=== PATIENT | male | born 1945 | race Caucasian/White ===

== ENCOUNTER → 2017-09-05 13:25 | Outpatient (CLI) | payer MEDICARE, SELFPAY ==
--- NOTE | 2017-09-05 13:29 | RAD_ITS ---
STUDY: X-RAY - ABDOMEN/PELVIS REASON FOR EXAM: Male, 72 years old. Left-sided flank pain TECHNIQUE: Single AP view of the abdomen / pelvis. COMPARISON: 10/01/2016 FINDINGS: Evidence of previous lower abdominal and pelvic surgery, likely from cystectomy There is a moderate amount of colonic fecal material. There is no demonstrated free abdominal air. The visualized liver, spleen and kidneys are grossly normal in size and morphology. No calcifications overlying either renal shadow, or along the expected course of either ureter, however, one could be obscured by the overlying bowel gas and stool Normal soft tissue structures. There are diffuse degenerative changes of the visualized lumbar spine. RAD/Abdomen Single View IMPRESSION: No acute findings Retained stool Degenerative bony changes Electronically Signed: Tre Bowser MD at 13:45 EDT , Service support ,
[2017-09-05 16:19] LABS: Anion Gap 9 (5-15); BUN 27 mg/dL (7-18); Chloride 112 mmol/L (98-107); Creatinine, Serum 1.69 mg/dL (0.70-1.30); EST Glomerular Filtration Rate 43 mL/min (>60); Est Glom Filt Rate - Afr Amer 52 mL/min (>60); Glucose 134 mg/dL (74-106); Potassium 3.7 mmol/L (3.5-5.1); Sodium Level 144 mmol/L (136-145)
[2017-09-06 09:52] LABS: Vitamin B12 277 pg/mL (211-911)
== END ==
PROVIDERS: Family Provider Family Medicine; PCP Family Medicine; Visit Provider Urology
DX: N20.0 Calculus of kidney (principal); Z85.51 Personal history of malignant neoplasm of bladder; Z87.442 Personal history of urinary calculi
CPT/HCPCS: 36415; 74018; 80048; 82607

== ENCOUNTER → 2020-09-08 09:29 | Outpatient (CLI) | payer MEDICARE, SELFPAY ==
--- NOTE | 2020-09-08 09:34 | RAD_ITS ---
STUDY: X-RAY - ABDOMEN/PELVIS REASON FOR EXAM: Male, 75 years old. PERSONAL HX OF URINARY CALCULI TECHNIQUE: Single AP view of the abdomen / pelvis. COMPARISON: 09/05/2017 FINDINGS: Normal visualized lung bases. There is an unremarkable bowel gas pattern. Multiple surgical clips in the pelvis. The visualized liver, spleen and kidneys are grossly normal in size and morphology. Normal soft tissue structures. Normal visualized osseous structures. RAD/Abdomen Single View IMPRESSION: Normal x-ray examination of the abdomen and pelvis. Electronically Signed: Elia Peck MD at 7:23 EDT Tel , Service support ,
== END ==
PROVIDERS: PCP Family Medicine; Referring Provider Nurse Practitioner Adult Health; Visit Provider Nurse Practitioner Adult Health
DX: Z87.442 Personal history of urinary calculi (principal); Z85.51 Personal history of malignant neoplasm of bladder
CPT/HCPCS: 74018

== ENCOUNTER → 2020-09-14 08:40 | Outpatient (CLI) | payer MEDICARE, SELFPAY ==
--- NOTE | 2020-09-14 08:46 | US_ITS ---
STUDY: RENAL ULTRASOUND - COMPLETE REASON FOR EXAM: Male, 75 years old. HX OF MALIGNANT NEOPLASM OF BLADDER TECHNIQUE: Ultrasound evaluation of the kidneys was performed with real-time and static mercado-scale imaging. COMPARISON: None. FINDINGS: RIGHT KIDNEY: Normal location of the right kidney, which is normal in size. The right kidney measures 10.3 cm. Increased echogenicity of the renal cortex consistent with chronic medical renal disease her advanced age. The renal cortex measures 1.9 cm. There is no right renal mass or cyst. There are no right renal calculi. There is no right hydronephrosis. DISTAL RIGHT URETER: There is non-visualization of the distal right ureter. There is no demonstrated right ureterovesical junction calculus. There is a visualized right ureteral jet. LEFT KIDNEY: Normal location of the left kidney, which is normal in size. The left kidney measures 10.4 cm. Increased echogenicity within renal cortex consistent with chronic medical residual disease or advanced age. The renal cortex measures 1.1 cm. 3 cm cyst in the midsection of the left kidney. There are no left renal calculi. There is no left hydronephrosis. DISTAL LEFT URETER: There is non-visualization of the distal left ureter. There is no demonstrated left ureterovesical junction calculus. There is a visualized left ureteral jet. BLADDER: The distended urinary bladder has a volume of 527 ml. The empty urinary bladder has a volume of ml. There is a normal wall thickness of the distended urinary bladder. There is no demonstrated mass within the urinary bladder. There are no demonstrated bladder calculi. US/Kidney and Bladder IMPRESSION: No hydronephrosis to suggest obstruction. Electronically Signed: Elia Peck MD at 10:05 EDT Tel , Service support ,
== END ==
PROVIDERS: PCP Family Medicine; Referring Provider Nurse Practitioner Adult Health; Visit Provider Nurse Practitioner Adult Health
DX: Z85.51 Personal history of malignant neoplasm of bladder (principal); Z87.442 Personal history of urinary calculi
CPT/HCPCS: 76770

== ENCOUNTER → 2022-10-04 | Outpatient (CLI) | payer MEDICARE, SELFPAY ==
--- NOTE | 2022-10-04 13:01 | RAD_ITS ---
STUDY: X-RAY - ABDOMEN/PELVIS REASON FOR EXAM: Male, 77 years old. Malignant neoplasm of bladder. Follow-up. TECHNIQUE: Single AP view of the abdomen / pelvis on 3 images. COMPARISON: Abdominal x-ray dated August 2020. FINDINGS: Normal visualized lung bases. There is an unremarkable bowel gas pattern. There is no demonstrated free abdominal air. The visualized liver, spleen and kidneys are grossly normal in size and morphology. Stable multiple clips projected over the lower lumbosacral spine, bilateral pelvis and symphysis pubis. Osteopenia with arthrosis of both hips, unchanged. RAD/Abdomen Single View IMPRESSION: Stable abdomen with no acute superimposed finding. Electronically Signed: Saad Stern MD at 9:38 EDT ,
== END | disposition home or self-care (01) ==
LOC: RAD 12:54
PROVIDERS: PCP Family Medicine; Referring Provider Urology; Visit Provider Urology
DX: Z85.51 Personal history of malignant neoplasm of bladder (principal); Z87.442 Personal history of urinary calculi
CPT/HCPCS: 74018

== ENCOUNTER → 2024-09-07 | Outpatient (CLI) | payer MEDICARE, SELFPAY ==
--- NOTE | 2024-09-07 12:55 | RAD_ITS ---
PROCEDURE: ABDOMEN SINGLE VIEW 09/07/2024 REASON FOR EXAM: URINARY CALCULI TECHNIQUE: ABDOMEN SINGLE VIEW COMPARISON: Prior study dated October 05, 2022. FINDINGS: Bowel gas: Mildly distended left hemicolon. Calcifications: Surgical clips are seen in the abdomen. Bones: Degenerative changes of the lumbar spine. Other: No radiopaque calculus seen overlying the kidneys or the course of the ureters. RAD/Abdomen Single View IMPRESSION: No abnormal renal or ureteral calcification seen. Reading Location: [id number]
--- OUTSIDE RECORDS SUMMARY | 2024-09-07 22:23 | XMS RPT_ITS | CCD ---
Author Organization [facility] Care Team Providers Care Can Filling And Closing Machine Tender Name Role Phone GABBYFERNFABIO Unavailable Unavailable GABBY FABIO Unavailable Unavailable PHYSICIAN, NOT RECORDED Unavailable Unavailyandel Ang MD, Fernando Wiggins Unavailable Dr. Dusty Ott MD Unavailable Michelle ZAMORA, Patricia Unavailable Dr. Otto Haley MD, V Unavailable Dr. Mikhail Voss Unavailable [phone] Job Cornejo DO [facility]available [facility] ([facility] Unavailable Physical Therapy, Diony Reyes Unavailable Kristopher HERRMANN, Dr. Jose Francisco Urrutia Unavailable [facility] DIRECTOR, Gregoria Unavailable [facility] DIRECTOR, Candy Unavailable Unavailable [facility] DIRECTOR, Connie E Unavailable Unavailable [facility] DIRECTOR, Lilliana C Unavailable Unavailable Burton HERRMANN, Otto Benjamin Unavailable Donato OROSCO, Sandhya Unavailable Unavailable Brian MICHAELSN, Livia Unavailable Unavailable Terence OMER, Elise Benjamin Unavailable Unavaila shaq Ott RN, Nguyen Unavailable [phone] Dena OMER, Staci Lee Unavailable Unavailable [facility] DIRECTOR, Char K Unavailable Unagris Pabon PA-C, Katie Nixon Unavailable [phone] Mable POUCH MAKER, Erica Unavailable Unavailable [facility] DIRECTOR, Katja L Unavailable Unavailab le [facility] DIRECTOR, Franny M Unavailable Unavailab le [facility] DIRECTOR, Aster Guerrero Unavailable Unavailab claudia [facility] DIRECTOR, Saadia Unavailable Unavailabl e Nick [facility] DIRECTOR, Sonya N Unavailable Unavaila ble [facility] DIRECTOR, Yaneli Unavailable Unavailable Unavailable Unavailable India Santos C Unavailable Unavailable Unavailable Unavailable [facility] DIRECTOR, David Unavailable Unavailable Dr. Job Cornejo DO Unavailable [facility] DIRECTOR, Shantelle Unavailable UnavailFernando [facility] Unavailable Hubert Dc Referring Unavailable Hubert Dc Attending Unavailable Medications Current Medications Medication Drug Class(es) Dates Sig (Normalized) Sig (Original) acetaminophen 300 mg / HYDROcodone bitartrate 5 mg oral tablet (1 source) Opioid Agonist Start: 11-23-2015 take 1 tablet by mouth every six hours as needed Hydrocodone-Aceta minophen (Vicodin 5-300 Mg Tablet) 1 EACH tablet Active 1 TABLET PO EVERY 6 HOURS NEEDED November 23, 2015 12:00am ascorbic acid 500 mg oral tablet (15 sources) Vitamin C Start: 11-22-2015 take 1 tablet by mouth once daily Ascorbic Acid (Vitamin C) (Vitamin C) 500 MG tablet Active 500 MG PO DAILY@799November 22, 2015 12:00am Vitamin C ; kulwinder y aspirin 81 mg delayed release oral tablet (15 sources) Platelet Aggregation Inhibitor, Nonsteroidal Anti-inflammatory Drug Start: 11-22-2015 take 81 mg by mouth once daily Aspirin Active 81 MG PO DAILY@0800 November 22, 2015 12:00am take 1 tablet by mouth once kulwinder y ASPIRIN, 81MG (Oral Tablet) ; 1 daily (81 MG) atorvastatin 20 mg oral tablet (14 sources) HMG-CoA Reductase Inhibitor Start: 08-02-2023 atorvastatin 20 mg tablet ; 1 (one) Tablet qhs for 0 days Quantity: 90 {Tablet} Refills: 3 Ordered: 21-Jul-2024 MD Fernando Ang Start: 21-Jul-2024 Comments: Mail order. Start: 10-22-2022 atorvastatin 2 0 mg tablet ; 1 (one) Tablet qhs for 0 days Quantity: 90 {Tablet} Refills: 2 Ordered: 22-Oct-2022 MD Fernando Ang Start: 22-Oct-2022 Comments: Mail order. Comment on above: Mail order. carvedilol 6.25 mg oral tablet (15 sources) alpha-Adrenergic Francine, beta-Adrenergic Francine Start: 08-02-2023 carvediloL 6.25 mg tablet ; 1 Tablet bid for 90 days Quantity: 180 {Tablet} Refills: 3 Ordered: 21-Jul-2024 MD Fernando Ang Start: 21-Jul-2024 Comments: Mail order. Start: 07-17-2022 take 1 tablet by paulina th twice daily Carvedilol 6.25 MG Oral Tablet ; 1 Tablet bid for 90 days Quantity: 180 {Tablet} Refills: 3 Ordered: 17-Jul-2022 MD Fernando Ang Start: 17-Jul-2022 Comments: Mail order. Start: 11-22-2015 take 3.125 mg by paulina th twice daily Carvedilol Active 3.125 MG PO TWICE A DAY November 22, 2015 12:00am Comment on above: Mail order. Chondroitin Sulfates / Glucosamine (14 sources) take 1 tablet by mouth once daily Glucosamine Chondroitin Adv Oral Tablet ; 1 daily Daily Multivitamin Capsule (1 source) Start: 6 take 1 capsule by mouth once daily Daily Multivitamin Capsule Active 1 OINT PO DAILY November 22, 2015 12:00am Fish Oil-Dha-Epa (1 source) Start: 6 Fish Oil-Dha-Epa Active 1 EACH PO DAILY November 22, 2015 12:00am Fish Oils (14 sources) Fish Oil ; daily Yatkeour-Uciffs-Akt C-Mn-Hospers (1 source) Start: 6 Yyydquob-Ljgohk-Cea C-Mn-Hospers Active 1 EACH PO DAILY November 22, 2015 12:00am losartan potassium 50 mg oral tablet (15 sources) Angiotensin 2 Receptor Rfancine Start: 4 losartan 50 mg tablet ; 1 Tablet daily for 90 days Quantity: 90 {Tablet} Refills: 3 Ordered: 21-Jul-2024 MD Fernando Ang Start: 21-Jul-2024 Comments: Mail order. Start: 11-22-2015 take 1 tablet by paulina th once daily Losartan Potassium 50 MG Oral Tablet ; 1 Tablet daily for 90 days Quantity: 90 {Tablet} Refills: 3 Ordered: 17-Jul-2022 MD Fernando Ang Start: 17-Jul-2022 Comments: Mail order. Comment on above: Mail order. lutein 20 mg oral capsule (15 sources) Start: 11-22-2015 take 20 mg by mouth once daily Lutein Active 20 MG PO DAILY November 22, 2015 12:00am Lutein ; daily Multivitamin Adult Oral Tablet (14 sources) take 1 tablet by mouth once daily Multivitamin Adult Oral Tablet ; 1 daily Red Rice Yeast (1 source) Start: 11-22-2015 take 1200 mg by mouth once daily Red Rice Yeast Active 1200 MG PO DAILY November 22, 2015 12:00am turmeric root extract (4 sources) turmeric root ex tract vitamin e 180 mg oral capsule (15 sources) Start: 11-22-2015 take 400 [IU] by mouth once daily Vitamin E Active 400 UNIT PO DAILY November 22, 2015 12:00am Vitamin E ; kulwinder y Completed/Discontinued Medications Medication Drug Class(es) Dates Sig (Normalized) Sig (Original) amLODIPine 2.5 mg oral tablet (14 sources) Dihydropyridine Calcium Channel Francine take 1 tablet by mouth once daily AMLODIPINE BESYLATE, 2.5MG (Oral Tablet) ; 1 daily (2.5 MG) Status: Inactive amoxicillin 500 mg oral tablet (14 sources) Penicillin-class Antibacterial Start: 11-23-2011 End: 12-03-2011 take 1 tablet by mouth three times daily AMOXICILLIN, 500MG (Oral Tablet) ; 1 Tablet TID for 10 days Quantity: 30 {Tablet} Refills: 0 Ordered: 23-Nov-2011 SULLY Pabon Start: 23-Nov-2011 End: 03-Dec-2011 Status: Inactive amoxicillin 875 mg / clavulanate 125 mg oral tablet (20 sources) Penicillin-class Antibacterial Start: 09-19-2018 End: 09-29-2018 take 1 tablet by mouth twice daily Amoxicillin-Pot Clavulanate 875-125 MG Oral Tablet ; 1 (one) Tablet bid for 10 days Quantity: 20 {Tablet} Refills: 0 Ordered: 19-Sep-2018 MD Fernando Ang Start: 19-Sep-2018 End: 29-Sep-2018 Status: Inactive Start: 07-24-2011 End: 07-31-2011 take 1 tablet by mouth twice daily AUGMENTIN, 875-125MG (Oral Tablet) ; 1 (one) Tablet two times daily for 7 days Quantity: 14 {Tablet} Refills: 0 Ordered: 24-Jul-2011 CARO Carvalho Start: 24-Jul-2011 End: 31-Jul-2011 Status: Inactive cephalexin 500 mg oral capsule (14 sources) Cephalosporin Antibacterial Start: 01-23-2011 End: 01-31-2011 take 1 capsule by mouth three times daily CEPHALEXIN, 500MG (Oral Capsule) ; 1 Capsule three times daily for 10 days Quantity: 30 {Capsule} Refills: 1 Ordered: 31-Jan-2011 MD Otto Manrique Start: 23-Jan-2011 End: 31-Jan-2011 Status: Inactive ciprofloxacin 500 mg oral tablet (14 sources) Quinolone Antimicrobial Start: 01-31-2011 End: 02-10-2011 take 1 tablet by mouth twice daily CIPROFLOXACIN HCL, 500MG (Oral Tablet) ; 1 Tablet two times daily for 10 days Quantity: 20 {Tablet} Refills: 0 Ordered: 31-Jan-2011 MD Otto Manrique Start: 31-Jan-2011 End: 10-Feb-2011 Status: Inactive Comments: Comment on above: fluticasone propionate 0.05 mg/actuat metered dose nasal spray (14 sources) Corticosteroid Start: 11-23-2011 End: 11-11-2013 take 1 spray(s) nasal route twice daily FLONASE, 50MCG/ACT (Nasal Suspension) ; 1 spray(s) in each nostril BID for 0 days Quantity: 1 {bottle(s)} Refills: 0 Ordered: 11-Nov-2013 CARO Garnica Aster Guerrero Start: 23-Nov-2011 End: 11-Nov-2013 Status: Inactive levoFLOXacin 500 mg oral tablet (14 sources) Quinolone Antimicrobial Start: 04-27-2016 End: 05-07-2016 take 1 tablet by mouth once daily Levaquin 500 MG Oral Tablet ; 1 Tab Daily for 10 days Quantity: 10 {Tablet} Refills: 0 Ordered: 11-Jun-2016 MD Fernando Ang Start: 27-Apr-2016 End: 07-May-2016 Status: Inactive omeprazole 20 mg delayed release oral tablet (14 sources) Proton Pump Inhibitor take 1 tablet by mouth once daily OMEPRAZOLE, 20MG (Oral Tablet Delayed Release) ; 1 daily (20 MG) Status: Inactive predniSONE 20 mg oral tablet (14 sources) Start: 11-25-2015 End: 04-27-2016 take 3 tablets by mouth once daily, then take 2 tablets by mouth once daily, then take 1 tablet by mouth once daily, then take 0.5 tablet by mouth once daily PredniSONE 20 MG Oral Tablet ; Tablet for 0 days Quantity: 20 {Tablet} Refills: 0 Ordered: 27-Apr-2016 CARO Singh Connie James Start: 25-Nov-2015 End: 27-Apr-2016 Status: Inactive Comments: Take 3tabs qd for 3 days thenTake 2tabs qd for 3 days thenTake 1tab qd for 3 days thenTake 1/2tab qd for 4 days. Comment on above: Take 3tabs qd for 3 days thenTake 2tabs qd for 3 days thenTake 1tab qd for 3 days thenTake 1/2tab qd for 4 days. red yeast rice (14 sources) Red Yeast Rice ; daily Status: Inactive Red Yeast Rice ; daily silver sulfADIAZINE 10 mg/ml topical cream (14 sources) Sulfonamide Antibacterial Start: 08-20-2018 End: 06-28-2020 Silvadene 1 % External Cream ; 1 application(s) daily for 0 days Quantity: 60 {Gram} Refills: 0 Ordered: 28-Jun-2020 CARO Garnica Aster Guerrero Start: 20-Aug-2018 End: 28-Jun-2020 Status: Inactive Problems Active Problems Problem Classification Problem Date Documented Da te Episodic/Chronic Calculus of urinary tract (1 source) Personal history of urinary calculi; Translations: [Personal history of urinary calculi] Onset: Episodic Cancer of bladder (20 sources) Malignant tumor of urinary bladder; Translations: [Malignant neoplasm of bladder, unspecified] 06-28-2020 Chronic Cancer of bladder (8 sources) H/O: malignant neoplasm; Translations: [Personal history of malignant neoplasm of bladder] 07-21-2024 Episodic Cardiac dysrhythmias (14 sources) Ventricular arrhythmia; Translations: [Ventricular premature depolarization] 07-20-2015 Chronic Chronic kidney disease (20 sources) Chronic kidney disease stage 3; Translations: [Chronic kidney disease, Stage III (moderate)] 07-16-2022 Chronic Chronic ulcer of skin (20 sources) Ulcer of lower limb, unspecified 01-31-2011 Chronic Conditions associated with dizziness or vertigo (20 sources) Vertigo; Translations: [Dizziness and giddiness] 07-17-2022 Episodic Disorders of lipid metabolism (20 sources) Hyperlipidemia; Translations: [Hyperlipidemia, unspecified] 07-16-2023 Chronic Esophageal disorders (20 sources) Gastroesophageal reflux disease; Translations: [Gastro-esophageal reflux disease without esophagitis] 07-16-2022 Chronic Essential hypertension (14 sources) Unspecified essential hypertension 07-08-2015 Chronic Immunizations and screening for infectious disease (20 sources) Need for prophylactic vaccination and inoculation against influenza 11-11-2013 Episodic Malaise and fatigue (20 sources) Fatigue; Translations: [Other fatigue] 06-21-2021 Episodic Nonspecific chest pain (20 sources) Chest pain; Translations: [Chest pain, unspecified] 06-21-2021 Episodic Other aftercare (20 sources) Drug indicated; Translations: [Other snf (current) drug therapy] 06-21-2021 Episodic Other aftercare (20 sources) Long-term current use of drug therapy; Translations: [Other snf (current) drug therapy] 05-21-2024 Episodic Other diseases of kidney and ureters (20 sources) Renal impairment; Translations: [Disorder of kidney and ureter, unspecified] 08-27-2018 Episodic Other ear and sense organ disorders (20 sources) Impacted cerumen; Translations: [Impacted cerumen, unspecified ear] 07-16-2022 Episodic Other gastrointestinal disorders (20 sources) Constipation; Translations: [Constipation, unspecified] 07-16-2022 Episodic Other injuries and conditions due to external causes (20 sources) Injury of ankle; Translations: [Unspecified injury of unspecified ankle, initial encounter] 06-21-2021 Episodic Other non-traumatic joint disorders (18 sources) Hip pain; Translations: [Pain in right hip] 07-02-2024 Episodic Other screening for suspected conditions (not mental disorders or infectious disease) (20 sources) Patient encounter status; Translations: [Encounter for screening for diabetes mellitus] 07-16-2023 Episodic Other skin disorders (14 sources) Infection of sebaceous cyst; Translations: [Sebaceous cyst] 09-19-2018 Episodic Other skin disorders (20 sources) Sebaceous cyst of skin; Translations: [Sebaceous cyst] 08-22-2010 Episodic Other upper respiratory disease (14 sources) Nasal congestion; Translations: [Nasal congestion] 11-23-2011 Episodic Other upper respiratory infections (20 sources) Sinusitis; Translations: [Chronic sinusitis, unspecified] 04-27-2016 Chronic Danna-; endo-; and myocarditis; cardiomyopathy (except that caused by tuberculosis or sexually transmitted disease) (20 sources) Cardiomyopathy; Translations: [Cardiomyopathy, unspecified] 07-16-2022 Chronic Peripheral and visceral atherosclerosis (20 sources) Atherosclerosis of aorta; Translations: [Atherosclerosis of aorta] 07-17-2022 Chronic Residual codes; unclassified (20 sources) Obstructive sleep apnea (adult)(pediatric) 06-21-2021 Chronic Residual codes; unclassified (20 sources) Obstructive sleep apnea syndrome; Translations: [Obstructive sleep apnea (adult) (pediatric)] 07-16-2022 Chronic Residual codes; unclassified (20 sources) History of radical cystectomy; Translations: [Acquired absence of other genital organ(s)] 07-16-2022 Episodic Skin and subcutaneous tissue infections (14 sources) Cellulitis; Translations: [Cellulitis, unspecified] 01-18-2011 Episodic Spondylosis; intervertebral disc disorders; other back problems (14 sources) Sciatica; Translations: [Sciatica, unspecified side] 11-28-2015 Episodic Unclassified (14 sources) [facility] Well Adult - In general the patient feels well with no complaints, has decreased energy level and is sleeping well. The patient has a balanced diet and takes supplemental vitamins. The patient does not exercise and sleeps 7 hours per night. The patient denies having trouble with bathing, dressing/grooming, toileting, preparing meals and ambulating. The patient denies having trouble with grocery shopping, driving, use of telephone, housework, laundry, preparing/taking medications and finances. The patient has a Healthcare Power of Contaminated Land Consultant and a Living Will. Note for [facility] Well Adult: reviewed by [facility] 07-17-2022 Unclassified (14 sources) [facility] Well Adult - In general the patient feels well with minor complaints (left ear feels like swimmers ear.). The patient has a balanced diet and takes supplemental vitamins. The patient exercises 3 - 4 times per week and sleeps 6 (6-7) hours per night. The patient denies having trouble with bathing, dressing/grooming, toileting, preparing meals and ambulating. The patient denies having trouble with grocery shopping, driving, use of telephone, housework, laundry, preparing/taking medications and finances. The patient has a Healthcare Power of Contaminated Land Consultant and a Living Will. 06-21-2021 Unclassified (14 sources) Follow Up for Multiple Chronic Conditions - The patient is here for follow-up of chronic kidney disease and GERD. The patient always takes the prescribed medications. No side effects noted (does not need refills). The patient engages in regular exercise program 3-5 times per week (walks). The patient's out of office blood pressure checks occur occasionally and dietary compliance is fairly good usually adhering to recommendations. The patient states that there is no recent angina or dyspnea, weight has increased (up 4 pounds) and headaches are rarely noted. Note for Multiple chronic conditions follow-up: reviewed by [facility] 06-28-2020 Unclassified (14 sources) Follow up for multiple chronic conditions - The patient is here for follow-up of GERD and other condition(s) (Cardiomyopathy). The patient always takes the prescribed medications. No side effects noted. The patient engages in regular exercise program 3-5 times per week (tries to get 10,000 steps daily). The patient's out of office blood pressure checks occur rarely (has not been checking recently) and dietary compliance is fairly good usually adhering to recommendations. The patient states that there is no recent angina or dyspnea and they do not have headaches. Note for Multiple chronic conditions follow-up: Labs printed to review today. reviewed by [facility] 07-27-2019 Unclassified (12 sources) Follow Up for Multiple Chronic Conditions - The patient is here for follow-up of GERD, hyperlipidemia and hypertension. The patient always takes the prescribed medications. No side effects noted (does not need refills). The patient engages in regular exercise program 3-5 times per week (walks). The patient's out of office blood pressure checks occur occasionally and dietary compliance is fairly good usually adhering to recommendations. The patient states that there is no recent angina or dyspnea, weight has increased (up 5 pounds) and headaches are rarely noted. Note for Multiple chronic conditions follow-up: Skin lesions right ankle are improving. reviewed by [facility] 08-27-2018 Unclassified (12 sources) [ADDITIONAL REASON] Transition into care - The patient is transitioning into care from another physician (cardiology) and a summary of care was reviewed. 08-27-2018 Unclassified (14 sources) Well Adult, male - The patient feels well with no complaints, has good energy level and is sleeping well. The patient has a balanced diet and takes supplemental vitamins. The patient exercises 3 - 4 times per week (Walks and bikes 5 to 6 days a week.). The patient sleeps 6 hours per night. Note for Well Adult, male: Sushil is very active, exercises, has no problems w ADLs, denies any sx of depression or anxiety 11-11-2013 Unclassified (12 sources) [facility] Well Adult - In general the patient feels well with minor complaints (Weakness in hands-Arthritis.Discus s Shingles shot.No falls since last year.Hearing loss in left ear.Wants refills for a year.). The patient has poor nutrition (not enough fruits and vegetables). The patient exercises 3 - 4 times per week and sleeps 7 hours per night. The patient denies having trouble with bathing, dressing/grooming, toileting, preparing meals and ambulating. The patient denies having trouble with grocery shopping, driving, use of telephone, housework, laundry, preparing/taking medications and finances. 08-02-2023 Unclassified (2 sources) Transition into care - The patient is transitioning into care from another physician (cardiology) and a summary of care was reviewed. 08-27-2018 Unclassified (2 sources) [ADDITIONAL REASON] Follow Up for Multiple Chronic Conditions - The patient is here for follow-up of GERD, hyperlipidemia and hypertension. The patient always takes the prescribed medications. No side effects noted (does not need refills). The patient engages in regular exercise program 3-5 times per week (walks). The patient's out of office blood pressure checks occur occasionally and dietary compliance is fairly good usually adhering to recommendations. The patient states that there is no recent angina or dyspnea, weight has increased (up 5 pounds) and headaches are rarely noted. Note for Multiple chronic conditions follow-up: Skin lesions right ankle are improving. reviewed by [facility] 08-27-2018 Unclassified (1 source) [facility] Well Adult 07-21-2024 Unclassified (4 sources) [facility] Well Adult - In general the patient feels well with no complaints, has decreased energy level and is sleeping well. The patient has a balanced diet. The patient exercises none (Patient is currently in PT) and sleeps 7 hours per night. The patient denies having trouble with bathing, dressing/grooming, toileting, preparing meals and ambulating. The patient denies having trouble with grocery shopping, driving, use of telephone, housework, laundry, preparing/taking medications and finances. The patient has a Healthcare Power of Contaminated Land Consultant and a Living Will. Note for [facility] Well Adult: Patient forgot his atorvastatin in [place] so he has been out for 3 weeks 07-21-2024 Past or Other Problems Problem Classification Problem Date Documented Da te Episodic/Chronic Unclassified (14 sources) Constipation - Note for Constipation: Was last seen in office 10-18-21 with constipation. Advised to increase fluids, exercise and take Miralax. Is concerned about possibly having hemorrhoids. reviewed by B 11-06-2021 Unclassified (14 sources) Constipation - The onset of the constipation has been acute and has been occurring in a persistent pattern for 1 month. The course has been constant. The amount of stool per bowel movement is small. The frequency of bowel movements has been 1 per week. The symptoms are relieved by laxatives. Note for Constipation: He had a strangulated inguinal hernia in Mar , had hernia repaired , no bowel resection. 10-18-2021 Unclassified (14 sources) Plugged ears - Complains of plugged ears for several weeks. Has been using ear drops. Has decreased ears. Left side is worse. reviewed by B 07-11-2021 Unclassified (14 sources) consult for apap - pt needs visit for [facility] for apap . Recently has been changed from CPAP to APAP. He is currently in [place] and not available for in person visit so today was a PHONE ENCOUNTER. 12-16-2020 Unclassified (14 sources) Skin lesion - Note for Skin lesion: Patient states that he had fatty tumor removed about 10 years ago or so. Has a lump in the same area that has gradually increased in size. 10 days ago, the area became reddened and very tender. Is not open. No drainage. No fever or chills. reviewed by B 09-19-2018 Unclassified (14 sources) Ankle pain - The onset of the ankle pain has been acute and has been occurring in a persistent pattern for 2 days. The course has been gradually improving. The pain is characterized as a moderate dull aching. The pain is in the right ankle. The pain is aggravated by physical activity. Note for Ankle pain: Fell yesterday afternoon. Has been using crutches. Continues with pain and swelling. He was running in rain and leaped over a puddle. 08-13-2018 Unclassified (14 sources) Cold SYmptoms - Pt here today because last Saturday he felt like he had a tickle in his throat and by evening he just was not feeling well. No fever. No headache. No facial pain or pressure. Occasional cough is which mainly dry. He started started some Amoxicillin last Saturday night that he had on hand tid because he felt it was sinus infection but is not feeling any better. No specific symptoms at this time . Will get achy and tired at times. A little nauseous but no vomiting. No diarrhea. No energy. No SOB and not no wheezing. PO 99%. Voice little hoarse and thinks he may have some drainage down throat. reviewed by [facility] 04-27-2016 Unclassified (13 sources) Possible Sciatica - Pt here today because 1 week ago he started to experience some pain right buttock that will radiate down to end of thigh. Says it feels like a deep Bruise. No numbness or tingling to legs or feet. Now lower back pain. Pain is aggravated by sitting. Relief is obtained by standing. He just started some Aleve this morning. Used Ibuprofen at first. Pt is suppossed to leave for [place] on Saturday.Pt had some Kidney stones crushed by Dr. Dc up in [place] this past - 11/23/15.Last saw Dr. Crouch 10/13/15. reviewed by [facility] 11-28-2015 Unclassified (13 sources) [ADDITIONAL REASON] Transition into care - The patient is transitioning into care from a hospital and a summary of care was reviewed . 11-28-2015 Unclassified (14 sources) Chest pain - The onset of the pain has been gradual and has been occurring for 3 weeks. The pain is described as a mild to moderate dull ache. The pain does not radiate. There are no precipitating factors. The symptoms are aggravated by stress. The symptoms are relieved by nothing (Has tried Rolaids and Omeprazole but has not had any relief.). Note for Chest pain: Pain/Achiness was episodic but now past several days it has been more constant. Pain is right between breasts. No other associated symptoms. Pt saw Ev on July 31 and he felt it was not heart related. Pt had hearth cath week prior to seeing Dr. Carreno and was told that was normal. He felt it was related to Acid Reflux and was put on Omeprazole till seen by PCP. 2015 Unclassified (11 sources) Follow up laboratory test results - Lab results returned on : (07-06-15) include other (cmp/lipid). 07-08-2015 Unclassified (11 sources) [ADDITIONAL REASON] Multiple complaints - Note for Multiple complaints: Had occasional chest pain this winter. Had increased chest pain while on a cruise in May. Had increased stress. Saw a doctor in [place] and started Amlodipine 2.5mg. No cardiac testing was done. 07-08-2015 Unclassified (14 sources) Routine visit - Pt is here for routine check up and to go over labs prior to going to [place] for the Winter. Had labs done and ready to review. On no prescription medications but takes Red Rice Yeast 2 caps daily and Fish oil for cholesterol, glucosamine/chondroitin for his knees, Vitamin c, 81 mg aspirin, Vitamin. Follows up at [facility] for Prostate Cancer. Feels is doing pretty well. Would like flu shot today. UTD with zostavax. No record of Pneumovax or Tetanus. reviewed by B 11-17-2012 Unclassified (14 sources) Cold Symptoms - Symptoms include sneezing, nasal congestion and runny nose (clear drainage), but do not include ear pain, dry cough, fever or headache. The onset was sudden hour(s) ago (started last night). The symptoms occur constantly. The patient describes this as moderate in severity and worsening. Current treatment includes allergy medications (took zyrtec last night). The patient has not been exposed to an individual with similar symptoms. Medical history includes seasonal allergies, recurrent sinusitis and tonsillectomy, but patient denies history of recurrent strep pharyngitis, asthma or recurrent ear infections. Note for Upper respiratory infection: Says he had something similar in July. He is leaving Saturday for [place] and then later in the month is going on a cruise. 11-23-2011 Unclassified (14 sources) Cold Symptoms - Symptoms include sneezing, hoarseness, productive cough, wheezing, fever, chills and general malaise. The onset was gradual 10 day(s) ago. The symptoms occur constantly. The patient describes this as moderate in severity and worsening. Current treatment includes acetaminophen. Risk factors do not include smoking. 07-24-2011 Unclassified (14 sources) fu leg ulcer - Patient was seen here on for right leg ulcer. It it improving.Pt has noted more swelling in foot. He states that he has been up more. He is also concerned about MRSA. 01-23-2011 Unclassified (14 sources) Skin Ulcer/Open Sore - Symptoms include an open sore, pain and swelling. Symptoms are located on the right ankle (calf). Onset was gradual 6 week(s) ago. Onset followed minor trauma. The patient describes this as moderate in severity. Past treatment has included oral antibiotics. Note for Skin Ulcer/Open Sore: 2 scripts of cephalexin 01-18-2011 Unclassified (14 sources) Cyst - Is here for removal of cyst on left shoulder. 08-22-2010 Unclassified (14 sources) Well adult male - The patient feels well with no complaints, has good energy level and is sleeping well. Date of most recent cholesterol screening : (08-02-10). Date of most recent glucose screening : (08-02-10). Patient has not had a Zostavax vaccine. Patient has not had a Pneumovax vaccine. Date of most recent influenza vaccine : (11-20). Last Tetanus booster: unknown/unsure and more than 10 year(s) ago. The patient has a balanced diet and takes no supplemental vitamins & iron. Patient exercises 3 - 4 times per week (walks). Patient sleeps 6 hours per night. Note for Well adult male: Would like to have lump on left shoulder checked. Pt saw ONC in June with no evidence of bladder CA recurrence. 08-09-2010 Unclassified (3 sources) Multiple complaints - Note for Multiple complaints: Had occasional chest pain this winter. Had increased chest pain while on a cruise in May. Had increased stress. Saw a doctor in [place] and started Amlodipine 2.5mg. No cardiac testing was done. 07-08-2015 Unclassified (3 sources) [ADDITIONAL REASON] Follow up laboratory test results - Lab results returned on : (07-06-15) include other (cmp/lipid). 07-08-2015 Unclassified (1 source) Transition into care - The patient is transitioning into care from a hospital and a summary of care was reviewed . 11-28-2015 Unclassified (1 source) [ADDITIONAL REASON] Possible Sciatica - Pt here today because 1 week ago he started to experience some pain right buttock that will radiate down to end of thigh. Says it feels like a deep Bruise. No numbness or tingling to legs or feet. Now lower back pain. Pain is aggravated by sitting. Relief is obtained by standing. He just started some Aleve this morning. Used Ibuprofen at first. Pt is suppossed to leave for [place] on Saturday.Pt had some Kidney stones crushed by Dr. Dc up in [place] this past - 11/23/15.Last saw Dr. Crouch 10/13/15. reviewed by [facility] 11-28-2015 Results Test Name Value Interpretation Reference Range Facility COMPREHENSIVE METABOLIC PANE [facility] 07-16-2024 Albumin [Mass/Vol] 4.4 g/dL Normal 3.6-5.1 [facility] Comment on above: Performed By: #### 1 0231, 5307, 7600 #### [facility] [place] [address] Head Turning Machine Operator: Ronnie Sheppard MD Albumin/Globulin [Mass ratio] 2.1 {ratio} Normal 1.0-2.5 [facility] Comment on above: Performed By: #### 1 0231, 5363, 7600 #### [facility] [place] [address] Head Turning Machine Operator: Ronnie Sheppard MD ALP [Catalytic activity/Vol] 61 U/L Normal 35-144 [facility] Comment on above: Performed By: #### 1 0231, 5363, 7600 #### [facility] [place] [address] Head Turning Machine Operator: Ronnie Sheppard MD ALT [Catalytic activity/Vol] 10 U/L Normal 9-46 [facility] Comment on above: Performed By: #### 1 0231, 5363, 7600 #### [facility] of [address], [address] [place] [address] Head Turning Machine Operator: Ronnie Sheppard MD AST [Catalytic activity/Vol] 16 U/L Normal 10-35 [facility] Comment on above: Performed By: #### 1 0231, 5363, 7600 #### [facility] of [address], [address] [place] [address] Head Turning Machine Operator: Ronnie Sheppard MD Bilirubin [Mass/Vol] 0.7 mg/dL Normal 0.2-1.2 [facility] Comment on above: Performed By: #### 1 0231, 5363, 7600 #### [facility] of [address], [address] [place] [address] Head Turning Machine Operator: Ronnie Sheppard MD Calcium [Mass/Vol] 9.5 mg/dL Normal 8.6-10.3 [facility] Comment on above: Performed By: #### 1 023, 5363, 7600 #### [facility] of [place] [address] Head Turning Machine Operator: Ronnie Sheppard MD Chloride [Moles/Vol] 107 mmol/L Normal 98-110 [facility] Comment on above: Performed By: #### 1 0231, 5363, 7600 #### [facility] of [place] [address] Head Turning Machine Operator: Ronnie Sheppard MD CO2 [Moles/Vol] 24 mmol/L Normal 20-32 [facility] Comment on above: Performed By: #### 1 0231, 5363, 7600 #### [facility] of [place] [address] Head Turning Machine Operator: Ronnie Sheppard MD Creatinine [Mass/Vol] 1.41 mg/dL High 0.70-1.28 [facility] Comment on above: Performed By: #### 1 0231, 5363, 7600 #### [facility] of [place] [address] Head Turning Machine Operator: Ronnie Sheppard MD GFR/1.73 sq M.predicted among non-blacks MDRD (S/P/Bld) [Vol rate/Area] 52 mL/min/{1.73_m2} Low > OR = 60 [facility] Comment on above: Performed By: #### 1 0231, 5363, 7600 #### [facility] of [address], [address] [place] [address] Head Turning Machine Operator: Ronnie Sheppard MD Globulin (S) [Mass/Vol] 2.1 g/dL Normal 1.9-3.7 [facility] Comment on above: Performed By: #### 1 0231, 5363, 7600 #### [facility] of [place] [address] Head Turning Machine Operator: Ronnie Sheppard MD Glucose [Mass/Vol] 96 mg/dL Normal 65-99 [facility] Comment on above: Result Comment: Fasting reference interval Performed By: #### 1 0231, 5363, 7600 #### [facility] of [place] [address] Head Turning Machine Operator: Ronnie Sheppard MD Potassium [Moles/Vol] 4.1 mmol/L Normal 3.5-5.3 [facility] Comment on above: Performed By: #### 1 0231, 5363, 7600 #### [facility] of [place] [address] Head Turning Machine Operator: Ronnie Sheppard MD Protein [Mass/Vol] 6.5 g/dL Normal 6.1-8.1 [facility] Comment on above: Performed By: #### 1 0231, 5363, 7600 #### [facility] of [place] [address] Head Turning Machine Operator: Ronnie Sheppard MD Sodium [Moles/Vol] 140 mmol/L Normal 135-146 [facility] Comment on above: Performed By: #### 1 0231, 5363, 7600 #### [facility] [place] [address] Head Turning Machine Operator: Ronnie Sheppard MD Urea nitrogen [Mass/Vol] 22 mg/dL Normal 7-25 [facility] Comment on above: Performed By: #### 1 0231, 5363, 7600 #### [facility] [address], [address] [place] [address] Head Turning Machine Operator: Ronnei Sheppard MD Urea nitrogen/Creatinine [Mass ratio] 16 mg/mg Normal 6-22 [facility] Comment on above: Performed By: #### 1 0231, 5363, 7600 #### [facility] of [address], [address] [place] [address] Head Turning Machine Operator: Ronnie Sheppard MD LIPID PANEL, [facility] 0 Cholesterol [Mass/Vol] 251 mg/dL High <200 [facility] Comment on above: Performed By: #### 1 0231, 5363, 7600 #### [facility] [place] [address] Head Turning Machine Operator: Ronnie Sheppard MD Cholesterol in HDL [Mass/Vol] 51 mg/dL Normal > OR = 40 [facility] Comment on above: Performed By: #### 1 0231, 5363, 7600 #### [facility] [place] [address] Head Turning Machine Operator: Ronnie Sheppard MD Cholesterol in LDL [Mass/Vol] 166 mg/dL High [facility] Comment on above: Result Comment: Refe rence range: <100 Desirable range <100 mg/dL for primary prevention; <70 mg/dL for patients with CHD or diabetic patients with > or = 2 CHD risk factors. LDL-C is now calculated using the Rodriguez calculation, which is a validated novel method providing better accuracy than the Friedewald equation in the estimation of LDL-C. Han FAM et al. BRAD. 2013;310(19): 9920-5341 (http://education.[employer]/faq/QAY955) Performed By: #### 1 0231, 5363, 7600 #### [facility] [address], [address] [place] [address] Head Turning Machine Operator: Ronnie Sheppard MD Cholesterol.total/Ch olesterol in HDL [Mass ratio] 4.9 {ratio} Normal <5.0 [facility] Comment on above: Performed By: #### 1 230, 5363, 7600 #### [facility] [address], [address] [place] [address] Head Turning Machine Operator: Ronnie Sheppard MD NON HDL CHOLESTEROL 200 mg/dL (calc) High <130 [facility] Comment on above: Result Comment: For patients with diabetes plus 1 major ASCVD risk factor, treating to a non-HDL-C goal of <100 mg/dL (LDL-C of <70 mg/dL) is considered a therapeutic option. Performed By: #### 1 023, 5363, 7600 #### [facility] [place] [address] Head Turning Machine Operator: Ronnie Sheppard MD Triglyceride [Mass/Vol] 184 mg/dL High <150 [facility] Comment on above: Performed By: #### 1 230, 5363, 7600 #### [facility] [place] [address] Head Turning Machine Operator: Ronnie Sheppard MD PSA, TOTALon 07-16-2024 PSA, TOTAL <0.04 Normal < OR = 4.00 [facility] Comment on above: Result Comment: The total PSA value from this assay system is standardized against the WHO standard. The test result will be approximately 20% lower when compared to the equimolar-standardized total PSA ([place]). Comparison of serial PSA results should be interpreted with this fact in mind. This test was performed using the Siemens chemiluminescent method. Values obtained from different assay methods cannot be used interchangeably. PSA levels, regardless of value, should not be interpreted as absolute evidence of the presence or absence of disease. Performed By: #### 1 023, 5363, 7600 #### [facility] [address], [address] [place] [address] Head Turning Machine Operator: Ronnie Sheppard MD Laboratory - Chemistry and C hemistry - challengeon 07-15-2024 Albumin [Mass/Vol] 4.4 g/dL Normal 3.6 - 5.1 g/dL [facility], [facility]. Albumin/Globulin [Mass ratio] 2.1 {ratio} Normal 1.0 - 2.5 [facility].; [place] [employer] [facility], [facility]. ALP [Catalytic activity/Vol] 61 U/L Normal 35 - 144 U/L [facility].; [facility], [facility]. ALT [Catalytic activity/Vol] 10 U/L Normal 9 - 46 U/L [facility].; [place] [employer] [facility], [facility]. AST [Catalytic activity/Vol] 16 U/L Normal 10 - 35 U/L [facility].; [place] [employer] [facility], [facility]. Bilirubin [Mass/Vol] 0.7 mg/dL Normal 0.2 - 1 .2 mg/dL [facility].; [place] [employer] [facility], [facility]. Calcium [Mass/Vol] 9.5 mg/dL Normal 8.6 - 10. 3 mg/dL [facility].; [place] [employer] [facility], [facility]. Chloride [Moles/Vol] 107 mmol/L Normal 98 - 11 0 mmol/L [facility].; [place] [employer] [place]. Cholesterol [Mass/Vol] 251 mg/dL Abnormal [facility].; [place] [employer] [facility], [facility]. Cholesterol in HDL [Mass/Vol] 51 mg/dL Normal [facility].; [place] [employer], [facility]. Cholesterol in LDL [Mass/Vol] 166 mg/dL Abnormal [facility].; [place] [employer]. CO2 [Moles/Vol] 24 mmol/L Normal 20 - 32 mmol/L [facility].; [place] [employer] [facility]. Creatinine [Mass/Vol] 1.41 mg/dL Abnormal 0.70 - 1.28 mg/dL [facility].; [place] [employer], [facility]. GFR/1.73 sq M.predicted among non-blacks MDRD (S/P/Bld) [Vol rate/Area] 52 mL/min/{1.73_m2} Abnormal [facility].; [place] [employer] Glucose [Mass/Vol] 96 mg/dL Normal 65 - 99 mg/dL [facility].; [facility] Potassium [Moles/Vol] 4.1 mmol/L Normal 3.5 - 5.3 mmol/L [facility].; [facility], [facility] Protein [Mass/Vol] 6.5 g/dL Normal 6.1 - 8.1 g/dL [facility].; [facility], [facility] Sodium [Moles/Vol] 140 mmol/L Normal 135 - 146 mmol/L [facility].; [facility], [facility] Triglyceride [Mass/Vol] 184 mg/dL Abnormal [facility]; [facility], [facility] Urea nitrogen [Mass/Vol] 22 mg/dL Normal 7 - 25 mg/dL [facility]; [facility], [facility] Urea nitrogen/Creatinine [Mass ratio] 16 mg/mg Normal 6 - 22 [facility]; [facility], [facility] No Panel Informationon 07-15 CHOL/HDLC RATIO 4.9 Normal [facility]; [facility], [facility] GLOBULIN 2.1 Normal 1.9 - 3.7 [facility]; [facility], [facility] NON HDL CHOLESTEROL 200 Abnormal [facility]; [facility], [facility] PSA, TOTAL <0.04 Normal [facility]; [facility], [facility] COMPREHENSIVE METABOLIC PANE [facility] 07-31-2023 Albumin [Mass/Vol] 4.3 g/dL Normal 3.6-5.1 [facility] Comment on above: Performed By: #### 1 1815, 0093 #### [facility] [address] [id number] Head Turning Machine Operator: Ronnie Sheppard MD Albumin/Globulin [Mass ratio] 2.0 {ratio} Normal 1.0-2.5 [facility] Comment on above: Performed By: #### 1 444, 4411 #### [facility] [address], [address] [place] [id number] Head Turning Machine Operator: Ronnie Sheppard MD ALP [Catalytic activity/Vol] 60 U/L Normal 35-144 [facility] Comment on above: Performed By: #### 1 0231, 7600 #### [facility] of [place] [address] Head Turning Machine Operator: Ronnie Sheppard MD ALT [Catalytic activity/Vol] 11 U/L Normal 9-46 [facility] Comment on above: Performed By: #### 1 0231, 7600 #### [facility] of [place] [address] Head Turning Machine Operator: Ronnie Sheppard MD AST [Catalytic activity/Vol] 16 U/L Normal 10-35 [facility] Comment on above: Performed By: #### 1 0231, 7600 #### [facility] of [place] [address] Head Turning Machine Operator: Ronnie Sheppard MD Bilirubin [Mass/Vol] 0.8 mg/dL Normal 0.2-1.2 [facility] Comment on above: Performed By: #### 1 0231, 7600 #### [facility] of [place] [address] Head Turning Machine Operator: Ronnie Sheppard MD Calcium [Mass/Vol] 9.2 mg/dL Normal 8.6-10.3 [facility] Comment on above: Performed By: #### 1 0231, 7600 #### [facility] of [place] [address] Head Turning Machine Operator: Ronnie Sheppard MD Chloride [Moles/Vol] 109 mmol/L Normal 98-110 [facility] Comment on above: Performed By: #### 1 0231, 7600 #### [facility] of [place] [address] Head Turning Machine Operator: Ronnie Sheppard MD CO2 [Moles/Vol] 24 mmol/L Normal 20-32 [facility] Comment on above: Performed By: #### 1 0231, 7600 #### [facility] of [place] [address] Head Turning Machine Operator: Ronnie Sheppard MD Creatinine [Mass/Vol] 1.47 mg/dL High 0.70-1.28 [facility] Comment on above: Performed By: #### 1 023, 7600 #### [facility] [place] [address] Head Turning Machine Operator: Ronnie Sheppard MD GFR/1.73 sq M.predicted among non-blacks MDRD (S/P/Bld) [Vol rate/Area] 49 mL/min/{1.73_m2} Low > OR = 60 [facility] Comment on above: Performed By: #### 1 023, 7600 #### [facility] [place] [address] Head Turning Machine Operator: Ronnie Sheppard MD Globulin (S) [Mass/Vol] 2.2 g/dL Normal 1.9-3.7 [facility] Comment on above: Performed By: #### 1 230, 7600 #### [facility] of [place] [address] Head Turning Machine Operator: Ronnie Sheppard MD Glucose [Mass/Vol] 95 mg/dL Normal 65-99 [facility] Comment on above: Result Comment: Fasting reference interval Performed By: #### 1 023, 7600 #### [facility] [place] [address] Head Turning Machine Operator: Ronnie Sheppard MD Potassium [Moles/Vol] 3.8 mmol/L Normal 3.5-5.3 [facility] Comment on above: Performed By: #### 1 023, 7600 #### [facility] of [place] [address] Head Turning Machine Operator: Ronnie Sheppard MD Protein [Mass/Vol] 6.5 g/dL Normal 6.1-8.1 [facility] Comment on above: Performed By: #### 1 023, 7600 #### [facility] [place] [address] Head Turning Machine Operator: Ronnie Sheppard MD Sodium [Moles/Vol] 141 mmol/L Normal 135-146 [facility] Comment on above: Performed By: #### 1 0231, 7600 #### [facility] of [place] [address] Head Turning Machine Operator: Ronnie Sheppard MD Urea nitrogen [Mass/Vol] 22 mg/dL Normal 7-25 [facility] Comment on above: Performed By: #### 1 0231, 7600 #### [facility] of [place] [address] Head Turning Machine Operator: Ronnie Sheppard MD Urea nitrogen/Creatinine [Mass ratio] 15 mg/mg Normal 6-22 [facility] Comment on above: Performed By: #### 1 0231, 7600 #### [facility] [place] [address] Head Turning Machine Operator: Ronnie Sheppard MD LIPID PANEL, [facility] 07-12 Cholesterol [Mass/Vol] 148 mg/dL Normal <200 [facility] Comment on above: Performed By: #### 1 0231, 7600 #### [facility] [place] [address] Head Turning Machine Operator: Ronnie Sheppard MD Cholesterol in HDL [Mass/Vol] 55 mg/dL Normal > OR = 40 [facility] Comment on above: Performed By: #### 1 0231, 7600 #### [facility] [place] [address] Head Turning Machine Operator: Ronnie Sheppard MD Cholesterol in LDL [Mass/Vol] 74 mg/dL Normal [facility] Comment on above: Result Comment: Refe rence range: <100 Desirable range <100 mg/dL for primary prevention; <70 mg/dL for patients with CHD or diabetic patients with > or = 2 CHD risk factors. LDL-C is now calculated using the Rodriguez calculation, which is a validated novel method providing better accuracy than the Friedewald equation in the estimation of LDL-C. Han SS et al. BRAD. 2013;310(19): 3911-8149 (http://education.[employer]ling/faq/WDT542) Performed By: #### 1 230, 0 #### [facility] [address], [address] [place] [address] Head Turning Machine Operator: Ronnie Sheppard MD Cholesterol.total/Ch olesterol in HDL [Mass ratio] 2.7 {ratio} Normal <5.0 [facility] Comment on above: Performed By: #### 1 023, 0 #### [facility] [address], [address] [place] [address] Head Turning Machine Operator: Ronnie Sheppard MD NON HDL CHOLESTEROL 93 mg/dL (calc) Normal <130 [facility] Comment on above: Result Comment: For patients with diabetes plus 1 major ASCVD risk factor, treating to a non-HDL-C goal of <100 mg/dL (LDL-C of <70 mg/dL) is considered a therapeutic option. Performed By: #### 1 230, 0 #### [facility] [address], [address] [place] [address] Head Turning Machine Operator: Ronnie Sheppadr MD Triglyceride [Mass/Vol] 103 mg/dL Normal <150 [facility] Comment on above: Performed By: #### 1 023, 0 #### [facility] [place] [address] Head Turning Machine Operator: Ronnie Sheppard MD Laboratory - Chemistry and C hemistry - challengeon 07-30-2023 Albumin [Mass/Vol] 4.3 g/dL Normal 3.6 - 5.1 g/dL [facility], [facility].; [facility] Albumin/Globulin [Mass ratio] 2.0 {ratio} Normal 1.0 - 2.5 [facility], [facility].; [facility], [facility]. ALP [Catalytic activity/Vol] 60 U/L Normal 35 - 144 U/L [facility], [facility].; [facility] ALT [Catalytic activity/Vol] 11 U/L Normal 9 - 46 U/L [facility], [facility].; [place] [employer] [facility], [facility]. AST [Catalytic activity/Vol] 16 U/L Normal 10 - 35 U/L [facility], [facility].; [place] [employer] [facility], [facility]. Bilirubin [Mass/Vol] 0.8 mg/dL Normal 0.2 - 1 .2 mg/dL [facility], [facility].; [facility] Calcium [Mass/Vol] 9.2 mg/dL Normal 8.6 - 10. 3 mg/dL [facility], [facility].; [facility], [facility]. Chloride [Moles/Vol] 109 mmol/L Normal 98 - 11 0 mmol/L [facility], [facility].; [place] [employer] Cholesterol [Mass/Vol] 148 mg/dL Normal [facility], [facility].; [facility], [facility]. Cholesterol in HDL [Mass/Vol] 55 mg/dL Normal [facility], [facility].; [place] [employer] [facility] Cholesterol in LDL [Mass/Vol] 74 mg/dL Normal [facility], [facility].; [place] [employer] [facility], [place] CO2 [Moles/Vol] 24 mmol/L Normal 20 - 32 mmol/L [facility], [facility].; [place] [employer] Creatinine [Mass/Vol] 1.47 mg/dL Abnormal 0.70 - 1.28 mg/dL [facility], [facility].; [place] [employer] [facility], [facility]. GFR/1.73 sq M.predicted among non-blacks MDRD (S/P/Bld) [Vol rate/Area] 49 mL/min/{1.73_m2} Abnormal [facility], [facility].; [facility] Glucose [Mass/Vol] 95 mg/dL Normal 65 - 99 mg/dL [facility], [facility].; [place] [employer] Potassium [Moles/Vol] 3.8 mmol/L Normal 3.5 - 5.3 mmol/L [facility], [facility].; [place] [employer] Protein [Mass/Vol] 6.5 g/dL Normal 6.1 - 8.1 g/dL [facility], [facility].; [place] [employer] Sodium [Moles/Vol] 141 mmol/L Normal 135 - 146 mmol/L [facility], [facility].; [place] [employer] Triglyceride [Mass/Vol] 103 mg/dL Normal [facility] Urea nitrogen [Mass/Vol] 22 mg/dL Normal 7 - 25 mg/dL [facility].; [facility], [facility]. Urea nitrogen/Creatinine [Mass ratio] 15 mg/mg Normal 6 - 22 [facility].; [place] [employer] [facility], [facility]. No Panel Informationon 07-29 CHOL/HDLC RATIO 2.7 Normal [facility]; [facility] GLOBULIN 2.2 Normal 1.9 - 3.7 [facility]; [facility] NON HDL CHOLESTEROL 93 Normal [facility]; [facility], [facility] Laboratory - Chemistry and C hemistry - challengeon 07-11-2022 Albumin [Mass/Vol] 4.1 g/dL Normal 3.6 - 5.1 g/dL [facility].; [facility], [facility]. Albumin/Globulin [Mass ratio] 2.2 {ratio} Normal 1.0 - 2.5 [facility]; [facility]. ALP [Catalytic activity/Vol] 56 U/L Normal 35 - 144 U/L [facility].; [facility], [facility]. ALT [Catalytic activity/Vol] 12 U/L Normal 9 - 46 U/L [facility].; [place] [employer] [facility], [facility]. AST [Catalytic activity/Vol] 15 U/L Normal 10 - 35 U/L [facility].; [facility]. Bilirubin [Mass/Vol] 0.7 mg/dL Normal 0.2 - 1 .2 mg/dL [facility].; [facility], [facility]. Calcium [Mass/Vol] 9.2 mg/dL Normal 8.6 - 10. 3 mg/dL [facility].; [place] [employer] [facility], [facility]. Chloride [Moles/Vol] 109 mmol/L Normal 98 - 11 0 mmol/L [facility], [facility].; [place] [employer] [facility], [facility]. Cholesterol [Mass/Vol] 134 mg/dL Normal [facility].; [facility], [facility]. Cholesterol in HDL [Mass/Vol] 48 mg/dL Normal [facility].; [facility], [facility]. Cholesterol in LDL [Mass/Vol] 69 mg/dL Normal [facility], [facility].; [facility], [facility]. CO2 [Moles/Vol] 24 mmol/L Normal 20 - 32 mmol/L [facility].; [facility], [facility]. Creatinine [Mass/Vol] 1.49 mg/dL Abnormal 0.70 - 1.28 mg/dL [facility].; [facility], [facility]. GFR/1.73 sq M.predicted among non-blacks MDRD (S/P/Bld) [Vol rate/Area] 49 mL/min/{1.73_m2} Abnormal [facility], [facility]. Glucose [Mass/Vol] 87 mg/dL Normal 65 - 99 mg/dL [facility], [facility].; [facility], [facility]. Potassium [Moles/Vol] 3.8 mmol/L Normal 3.5 - 5.3 mmol/L [facility].; [facility], [facility]. Protein [Mass/Vol] 6.0 g/dL Abnormal 6.1 - 8.1 g/dL [facility], [facility].; [facility], [facility]. Sodium [Moles/Vol] 141 mmol/L Normal 135 - 146 mmol/L [facility], [facility].; [facility], [facility]. Triglyceride [Mass/Vol] 91 mg/dL Normal [facility], [facility].; [facility], [facility]. Urea nitrogen [Mass/Vol] 23 mg/dL Normal 7 - 25 mg/dL [facility], [facility].; [facility], [facility]. Urea nitrogen/Creatinine [Mass ratio] 15 mg/mg Normal 6 - 22 [facility], [facility].; [place] [employer] [facility], [facility]. No Panel Informationon 07-11 CHOL/HDLC RATIO 2.8 Normal [facility].; [facility], [facility]. GLOBULIN 1.9 Normal 1.9 - 3.7 [facility], [facility].; [place] [employer] [facility], [facility] NON HDL CHOLESTEROL 86 Normal [facility], [facility].; [facility], [facility]. Laboratory - Chemistry and C hemistry - challengeon 06-23-2020 Albumin [Mass/Vol] 4.5 g/dL Normal 3.6 - 5.1 g/dL [facility]; [facility], [facility] Albumin/Globulin [Mass ratio] 2.0 {ratio} Normal 1.0 - 2.5 [facility]; [place] [employer] [facility], [facility] ALP [Catalytic activity/Vol] 56 U/L Normal 35 - 144 U/L [facility].; [facility], [facility] ALT [Catalytic activity/Vol] 11 U/L Normal 9 - 46 U/L [facility].; [facility], [facility] AST [Catalytic activity/Vol] 16 U/L Normal 10 - 35 U/L [facility].; [place] [employer] [facility], [facility] Bilirubin [Mass/Vol] 0.9 mg/dL Normal 0.2 - 1 .2 mg/dL [facility].; [place] [employer], [place] Calcium [Mass/Vol] 9.6 mg/dL Normal 8.6 - 10. 3 mg/dL [facility].; [place] [employer], [place] Chloride [Moles/Vol] 106 mmol/L Normal 98 - 11 0 mmol/L [facility].; [place] [employer] Cholesterol [Mass/Vol] 243 mg/dL Abnormal [facility].; [place] [employer], [place]. Cholesterol in HDL [Mass/Vol] 51 mg/dL Normal [facility].; [place] [employer], [place]. Cholesterol in LDL [Mass/Vol] 161 mg/dL Abnormal [facility].; [place] [employer], [place] CO2 [Moles/Vol] 29 mmol/L Normal 20 - 32 mmol/L [facility].; [place] [employer], [place]. Creatinine [Mass/Vol] 1.45 mg/dL Abnormal 0.70 - 1.18 mg/dL [facility].; [place] [employer], [facility]. GFR/1.73 sq M.predicted among blacks MDRD (S/P/Bld) [Vol rate/Area] 55 mL/min/{1.73_m2} Abnormal [facility].; [place] [employer], [facility]. Glucose [Mass/Vol] 95 mg/dL Normal 65 - 99 mg/dL [facility]; [facility] Potassium [Moles/Vol] 3.7 mmol/L Normal 3.5 - 5.3 mmol/L [facility]; [facility] Protein [Mass/Vol] 6.8 g/dL Normal 6.1 - 8.1 g/dL [facility]; [facility] Sodium [Moles/Vol] 141 mmol/L Normal 135 - 146 mmol/L [facility]; [facility] Triglyceride [Mass/Vol] 161 mg/dL Abnormal [facility]; [facility] Urea nitrogen [Mass/Vol] 21 mg/dL Normal 7 - 25 mg/dL [facility]; [facility], [facility] Urea nitrogen/Creatinine [Mass ratio] 14 mg/mg Normal 6 - 22 [facility]; [place] [employer] [facility] No Panel Informationon 06-23 CHOL/HDLC RATIO 4.8 Normal [facility]; [facility] eGFR NON-AFR. NEW ZEALANDER 48 Abnormal [facility]; [facility] GLOBULIN 2.3 Normal 1.9 - 3.7 [facility]; [place] [employer] [facility], [facility] NON HDL CHOLESTEROL 192 Abnormal [facility]; [place] [employer] [facility] Laboratory - Chemistry and C hemistry - challengeon 07-22-2019 Albumin [Mass/Vol] 4.3 g/dL Normal 3.6 - 5.1 g/dL [facility]; [facility] Albumin/Globulin [Mass ratio] 2.2 {ratio} Normal 1.0 - 2.5 [facility]; [place] [employer] [facility] ALP [Catalytic activity/Vol] 68 U/L Normal 35 - 144 U/L [facility]; [place] [employer] [facility], [facility]. ALT [Catalytic activity/Vol] 13 U/L Normal 9 - 46 U/L [facility]; [place] [employer] [facility]. AST [Catalytic activity/Vol] 16 U/L Normal 10 - 35 U/L [facility], [facility].; [facility], [facility]. Bilirubin [Mass/Vol] 0.5 mg/dL Normal 0.2 - 1 .2 mg/dL [facility], [facility].; [facility], [facility] Calcium [Mass/Vol] 9.3 mg/dL Normal 8.6 - 10. 3 mg/dL [facility], [facility].; [facility], [facility]. Chloride [Moles/Vol] 110 mmol/L Normal 98 - 11 0 mmol/L [facility], [facility].; [facility], [facility] Cholesterol [Mass/Vol] 221 mg/dL Abnormal [facility], [facility].; [facility], [facility]. Cholesterol in HDL [Mass/Vol] 47 mg/dL Normal [facility], [facility].; [facility], [facility]. Cholesterol in LDL [Mass/Vol] 146 mg/dL Abnormal [facility], [facility].; [facility], [facility]. CO2 [Moles/Vol] 22 mmol/L Normal 20 - 32 mmol/L [facility], [facility].; [place] [employer] [facility], [facility] Creatinine [Mass/Vol] 1.61 mg/dL Abnormal 0.70 - 1.18 mg/dL [facility], [facility].; [facility], [facility]. GFR/1.73 sq M.predicted among blacks MDRD (S/P/Bld) [Vol rate/Area] 49 mL/min/{1.73_m2} Abnormal [facility], [facility].; [facility], [facility] Glucose [Mass/Vol] 89 mg/dL Normal 65 - 99 mg/dL [facility], [facility].; [place] [employer] Potassium [Moles/Vol] 4.0 mmol/L Normal 3.5 - 5.3 mmol/L [facility], [facility].; [facility], [facility] Protein [Mass/Vol] 6.3 g/dL Normal 6.1 - 8.1 g/dL [facility], [facility].; [place] [employer] Sodium [Moles/Vol] 141 mmol/L Normal 135 - 146 mmol/L [facility], [facility].; [place] [employer] Triglyceride [Mass/Vol] 150 mg/dL Abnormal [facility].; [employer]. Urea nitrogen [Mass/Vol] 26 mg/dL Abnormal 7 - 25 mg/dL [facility].; [employer]. Urea nitrogen/Creatinine [Mass ratio] 16 mg/mg Normal 6 - 22 [facility].; [employer]. No Panel Informationon 07-21 CHOL/HDLC RATIO 4.7 Normal [facility]; [place] [employer] [facility]. eGFR NON-AFR. [place]ANDER 42 Abnormal [facility].; [employer]. GLOBULIN 2.0 Normal 1.9 - 3.7 [facility]; [employer] NON HDL CHOLESTEROL 174 Abnormal [facility].; [employer] [facility]. ANKLE COMPLETE RTon 08-14-19 19 ANKLE COMPLETE RT [place] [address] Patient: SUSHIL TREVINO Phone#: : 1945 Age: 73 Gender: M Pt. Type: Out Account: [id number] Location: 052 Ordering: FERNANDO ANG Exam Date: 08/13/2018/10:05 Family Phys: Charge Code: [id number] Physician: [place] Order #: [id number] DLP Dose#: PROCEDURE: X-RAY ANKLE COMPLETE RT MIN 3 VIEWS COMPARISON: None. INDICATIONS: Ankle injury FINDINGS: BONES: No acute fracture or dislocation. There is a small calcaneal spur measuring 0.5 cm. There is an os trigonum measuring 1.0 x 0.6 cm. SOFT TISSUES: There is soft tissue swelling overlying the malleoli and anterior ankle. Soft tissue swelling most pronounced overlying the medial malleolus. EFFUSION: None visible. OTHER: Negative. CONCLUSION: 1. Soft tissue swelling without acute osseous abnormality. Dictated by: Ernestine Busby MD on 08/13/2018 at 10:44 Approved by: Ernestine Busby MD on 08/13/2018 at 10:44 Normal [facility] Laboratory - Chemistry and C hemistry - challengeon 08-13-2018 Albumin [Mass/Vol] 4.3 g/dL Normal 3.6 - 5.1 g/dL [facility].; [employer]. Albumin/Globulin [Mass ratio] 2.0 {ratio} Normal 1.0 - 2.5 [facility].; [employer]. ALP [Catalytic activity/Vol] 73 U/L Normal 40 - 115 U/L [facility].; [place] [employer]. ALT [Catalytic activity/Vol] 11 U/L Normal 9 - 46 U/L [facility].; [employer]. AST [Catalytic activity/Vol] 16 U/L Normal 10 - 35 U/L [place] [employer] [facility].; [employer]. Bilirubin [Mass/Vol] 0.8 mg/dL Normal 0.2 - 1 .2 mg/dL [place] [employer] [facility].; [employer]. Calcium [Mass/Vol] 9.2 mg/dL Normal 8.6 - 10. 3 mg/dL [place] [employer] [facility].; [employer]. Chloride [Moles/Vol] 109 mmol/L Normal 98 - 11 0 mmol/L [place] [employer] [facility].; [employer]. Cholesterol [Mass/Vol] 206 mg/dL Abnormal [place] [employer] [facility].; [employer], [place]. Cholesterol in HDL [Mass/Vol] 46 mg/dL Normal [place] [employer] [facility].; [employer]. Cholesterol in LDL [Mass/Vol] 137 mg/dL Abnormal 0 - 100 mg/dL [place] [employer] [facility].; [employer], [place]. Cholesterol non HDL [Mass/Vol] 161 mg/dL Abnormal [employer] [facility].; [employer], [place]. Cholesterol.total/Ch olesterol in HDL [Mass ratio] 4.5 {ratio} Normal [place] [employer] [facility].; [employer]. CO2 [Moles/Vol] 20 mmol/L Normal 20 - 32 mmol/L [place] [employer] [facility].; [employer], [place]. Creatinine [Mass/Vol] 1.71 mg/dL Abnormal 0.70 - 1.18 mg/dL [facility].; [place] [employer]. GFR/1.73 sq M.predicted among blacks MDRD (S/P/Bld) [Vol rate/Area] 46 {ML/MIN/1.73M2} Abnormal [facility].; [place] [employer] [facility], Inc[facility] GFR/1.73 sq M.predicted MDRD (S/P/Bld) [Vol rate/Area] 39 {ML/MIN/1.73M2} Abnormal [place] [employer] [facility].; [place] [employer], [place]. Globulin (S) [Mass/Vol] 2.1 g/dL Normal 1.9 - 3.7 g/dL [facility].; [place] [employer], [place]. Glucose [Mass/Vol] 106 mg/dL Abnormal 65 - 99 mg/dL [place] [employer] [facility].; [employer], [place]. Potassium [Moles/Vol] 4.1 mmol/L Normal 3.5 - 5.3 mmol/L [facility].; [employer], [place]. Protein [Mass/Vol] 6.4 g/dL Normal 6.1 - 8.1 g/dL [place] [employer] [facility].; [employer], [place]. Sodium [Moles/Vol] 139 mmol/L Normal 135 - 146 mmol/L [place] [employer] [facility].; [employer], [place]. Triglyceride [Mass/Vol] 113 mg/dL Normal [place] [employer], [facility].; [employer], [place]. Urea nitrogen [Mass/Vol] 29 mg/dL Abnormal 7 - 25 mg/dL [place] [employer] [facility].; [employer], [place]. Urea nitrogen/Creatinine [Mass ratio] 17.2 mg/mg Normal 6 - 22 [place] [employer].; [employer]. Laboratory - Hematology and Cell countson 08-13-2018 Basophils (Bld) [#/Vol] 70 {Cells}/uL Normal 0 - 200 {Cells}/uL [place] [employer].; [employer] Basophils/100 WBC (Bld) 0.9 % Normal 0 - 1 % [place] [employer].; [employer], [place]. Eosinophils (Bld) [#/Vol] 230 {Cells}/uL Normal 15 - 500 {Cells}/uL [facility].; [place] [employer] [facility]. Eosinophils/100 WBC (Bld) 3.0 % Normal 0 - 4 % [facility].; [place] [employer] [facility], [facility]. Erythrocyte distribution width (RBC) [Ratio] 12.6 % Normal 11.0 - 15.0 % [facility], [facility].; [place] [employer], [facility]. Hematocrit (Bld) [Volume fraction] 39.9 % Normal 38.5 - 50.0 % [facility], [facility].; [place] [employer] [facility], [facility]. Hemoglobin (Bld) [Mass/Vol] 13.6 g/dL Normal 13.2 - 17.1 g/dL [facility].; [place] [employer] [facility], [facility]. Lymphocytes (Bld) [#/Vol] 1200 {Cells}/uL Normal 850 - 3900 {Cells}/uL [facility], [facility].; [place] [employer], [facility]. Lymphocytes/100 WBC (Bld) 15.8 % Normal 12 - 47 % [place] [employer] [facility].; [place] [employer], [facility]. MCH (RBC) [Entitic mass] 31.5 pg Normal 27.0 - 33.0 PG [place] [employer] [facility].; [place] [employer], [facility]. MCHC (RBC) [Mass/Vol] 34.1 g/dL Normal 32.0 - 36.0 g/dL [facility], [facility].; [place] [employer] MCV (RBC) [Entitic vol] 92.4 fL Normal 80.0 - 100.0 fL [place] [employer] [facility].; [place] [employer], [facility]. Monocytes (Bld) [#/Vol] 760 {Cells}/uL Normal 200 - 950 {Cells}/uL [place] [employer] [facility].; [place] [employer] Monocytes/100 WBC (Bld) 10.0 % Normal 4 - 12 % [place] [employer].; [place] [employer] Neutrophils (Bld) [#/Vol] 5340 {Cells}/uL Normal 1500 - 7800 {Cells}/uL [place] [employer], [facility].; [employer] Neutrophils/100 WBC (Bld) 70.3 % Normal 40 - 75 % [place] [employer] [facility].; [employer], [place]. Platelet mean volume (Bld) [Entitic vol] 10.9 fL Normal 7.5 - 12.5 fL [facility] [employer].; [employer]. Platelets (Bld) [#/Vol] 211 10*3/uL Normal 140 - 400 10*3/uL [facility] [employer].; [employer] RBC (Bld) [#/Vol] 4.32 10*6/uL Normal 4.20 - 5.8 0 10*6/uL [employer].; [employer] WBC (Bld) [#/Vol] 7.6 10*3/uL Normal 3.8 - 10.8 10*3/uL [employer].; [employer]. NM CARDIAC STRESS (SPECT) W/ TREADMILLon 10-23-2017 NM CARDIAC STRESS (SPECT) W/TREADMILL [place] [address] Patient: SUSHIL TREVINO Phone#: : 1945 Age: 72 Gender: M Pt. Type: Out Account: [id number] Location: [facility] Ordering: BRANDON CROUCH Exam Date: 10/23/2017/6:01 Family Phys: FERNANDO ANG Charge Code: [id number] Physician: [place] Order #: [id number] DLP Dose#: PROCEDURE: CARDIAC STRESS SPECT WITH TREADMILL EXERCISE HISTORY: Chest discomfort with exertion INDICATIONS: Chest pain TECHNIQUE: Resting and stress SPECT images acquired in the horizontal long, vertical long and short axis views. Protocol: Luis Duration: 07:30 minutes Peak Heart Rate: 142 bpm, which is 94% of maximum predicted heart rate. Workload: 9.30 METs REST DOSE: 11.2 mCi Sestamibi. STRESS DOSE: 32.8 mCi Sestamibi. INTERPRETATION: Resting Images: There is a decrease in the uptake of activity in the inferior wall. Otherwise relatively homogenous uptake of activity in other areas of the myocardium. Stress Images: There is a similar decrease in the uptake of activity in the inferior wall with otherwise relatively homogenous uptake of activity in other areas of the myocardium. No reversible defects. Gated SPECT/wall motion: Normal ejection fraction of 61% with normal wall motion CONCLUSION: 1. No evidence of significant inducible ischemia or prior myocardial infarction. 2. Normal ejection fraction of 61% with normal wall motion. 3. Diaphragmatic attenuation artifact. Dictated by: Jaguar Azul MD on 10/23/2017 at 10:15 Continued Report - Page 2 of 2 Patient: SUSHIL TREVINO Phone#: : 1945 Age: 72 Gender: M Pt. Type: Out Account: [id number] Location: 052 Ordering: BRANDON FarhatJudson WILLMARCELA Exam Date: 10/23/2017/6:01 Family Phys: FERNANDO ANG Charge Code: [id number] Physician: [place] Order #: [id number] DLP Dose#: Approved by: Jaguar Azul MD on 10/23/2017 at 10:15 Normal [facility] NM EXERCISE STRESS TEST (W/C ARDIAC STUDYon 10-23-2017 NM EXERCISE STRESS TEST (W/CARDIAC STUDY [place] [address] Patient: SUSHIL TREVINO Phone#: : 1945 Age: 72 Gender: M Pt. Type: Out Account: [id number] Location: 052 Ordering: BRANDON Soumya CROUCH Exam Date: 10/23/2017/7:16 Family Phys: FERNANDO ANG Charge Code: [id number] Physician: [place] Order #: [id number] DLP Dose#: PROCEDURE: ELECTROCARDIOGRAM STRESS TEST HISTORY: Exertional chest discomfort INDICATIONS: Chest Pain TECHNIQUE: Electrocardiogram stress test was performed using the protocol listed below. STRESS RESULTS: Protocol: Luis Duration: 07:30minutes Reason for termination: SOB; Chest Pain Resting Heart Rate: 57 bpm. Resting Blood Pressure: 142/81 mmHg Peak Heart Rate: 142 which is 94% of maximum predicted heart rate Peak Blood Pressure: 180/71 01:50 Recovery Workload: 9.30 METs. Symptoms with stress: Dyspnea and chest discomfort. The symptoms resolved in recovery. EKG Data EKG at Baseline: Sinus rhythm, rate 61. Right axis deviation. PVCs. EKG with Stress: There were no electrocardiographic changes diagnostic for ischemia during the protocol. CONCLUSION: 1. Chest discomfort suspicious for angina during the protocol. 2. There were no electrocardiographic changes diagnostic for ischemia during the protocol. 3. Mildly abnormal heart rate recovery period. 4. Normal blood pressure response to exercise. 5. Nuclear images will be interpreted and dictated separately. Continued Report - Page 2 of 2 Patient: SUSHIL TREVINO Phone#: : [phone] Age: 72 Gender: M Pt. Type: Out Account: [id number] Location: [id number] Ordering: BRANDON CROUCH Exam Date: 10/23/2017/7:16 Family Phys: FERNANDO ANG Charge Code: 587480 Physician: [place] Order #: [id number] DLP Dose#: Dictated by: Jaguar Azul MD on 10/23/2017 at 9:54 Approved by: Jaguar Azul MD on 10/23/2017 at 9:54 Normal [facility] Laboratory - Chemistry and C hemistry - challengeon 07-06-2015 Albumin [Mass/Vol] 4.1 g/dL Normal 3.6 - 5.1 g/dL [employer], [place].; [employer], [place] Albumin/Globulin [Mass ratio] 1.9 {ratio} Normal 1.0 - 2.5 [employer], [place].; [employer], [place] ALP [Catalytic activity/Vol] 63 U/L Normal 40 - 115 U/L [employer], [place].; [employer], [place] ALT [Catalytic activity/Vol] 13 U/L Normal 9 - 46 U/L [employer], [place].; [employer], [place] AST [Catalytic activity/Vol] 17 U/L Normal 10 - 35 U/L [employer], [place].; [employer], [place] Bilirubin [Mass/Vol] 0.7 mg/dL Normal 0.2 - 1 .2 mg/dL [employer], [place].; [employer], [place] Calcium [Mass/Vol] 9.3 mg/dL Normal 8.6 - 10. 3 mg/dL [facility], [facility].; [facility], [facility]. Chloride [Moles/Vol] 106 mmol/L Normal 98 - 11 0 mmol/L [facility].; [facility], [facility]. Cholesterol [Mass/Vol] 199 mg/dL Normal 125 - 200 mg/dL [facility], [facility].; [facility], [facility]. Cholesterol in HDL [Mass/Vol] 50 mg/dL Normal [facility], [facility]. Cholesterol in LDL [Mass/Vol] 131 mg/dL Abnormal [facility].; [facility], [facility]. Cholesterol non HDL [Mass/Vol] 149 mg/dL Normal [facility].; [facility], [facility]. Cholesterol.total/Ch olesterol in HDL [Mass ratio] 4.0 {ratio} Normal [facility].; [facility], [facility]. CO2 [Moles/Vol] 29 mmol/L Normal 19 - 30 mmol/L [facility].; [facility], [facility]. Creatinine [Mass/Vol] 1.46 mg/dL Abnormal 0.70 - 1.25 mg/dL [facility], [facility].; [facility], [facility]. GFR/1.73 sq M.predicted among blacks MDRD (S/P/Bld) [Vol rate/Area] 57 {ML/MIN/1.73M2} Abnormal [facility], [facility].; [facility], [facility]. GFR/1.73 sq M.predicted MDRD (S/P/Bld) [Vol rate/Area] 49 {ML/MIN/1.73M2} Abnormal [facility], [facility].; [place] [employer] [facility], [facility]. Globulin (S) [Mass/Vol] 2.2 g/dL Normal 1.9 - 3.7 g/dL [facility].; [facility], [facility]. Glucose [Mass/Vol] 88 mg/dL Normal 65 - 99 mg/dL [facility], [facility].; [place] [employer] [facility], [facility]. Potassium [Moles/Vol] 4.0 mmol/L Normal 3.5 - 5.3 mmol/L [facility].; [facility], [facility]. Protein [Mass/Vol] 6.3 g/dL Normal 6.1 - 8.1 g/dL [facility].; [place] [employer]. Sodium [Moles/Vol] 142 mmol/L Normal 135 - 146 mmol/L [facility].; [place] [employer] [facility]. Triglyceride [Mass/Vol] 92 mg/dL Normal [facility].; [place] [employer]. Urea nitrogen [Mass/Vol] 17 mg/dL Normal 7 - 25 mg/dL [facility].; [place] [employer]. Urea nitrogen/Creatinine [Mass ratio] 11.4 mg/mg Normal 6 - 22 [facility].; [employer] Laboratory - Chemistry and C hemistry - challengeon 11-11-2013 Bilirubin Ql (U) Negative [facility].; [place] [employer]. Ketones Ql (U) Negative Normal [facility].; [employer]. pH (U) 7.0 [pH] Normal [facility].; [employer]. Specific gravity (U) [Rel density] 1.020 Normal [facility].; [employer] Urobilinogen Qn (U) .2 mg/dL Normal [facility].; [place] [employer]. Laboratory - Hematology and Cell countson 11-11-2013 Hemoglobin Ql (U) trace, hemolyzed Abnormal H [facility].; [place] [employer] [facility] Laboratory - Specimen inform ationon 11-11-2013 Appearance (U) Clear Normal [facility].; [employer]. Color (U) Yellow Normal [place] [employer] [facility].; [employer]. Laboratory - Urinalysison Glucose Test strip (U) [Mass/Vol] Negative Normal [place] [employer].; [employer]. Leukocyte esterase Test strip Ql (U) Negative Normal [facility].; [employer], [place] Nitrite Ql (U) Negative Normal [facility] [employer]. Protein Ql (U) Negative Normal [facility] [employer].; [employer]. Laboratory - Chemistry and C hemistry - challengeon 10-30-2013 Albumin [Mass/Vol] 4.7 g/dL Normal 3.6 - 5.1 g/dL [facility].; [place] [employer]. Albumin/Globulin [Mass ratio] 2.0 {ratio} Normal 1.0 - 2.5 [facility].; [place] [employer]. ALP [Catalytic activity/Vol] 53 U/L Normal 40 - 115 U/L [facility].; [place] [employer]. ALT [Catalytic activity/Vol] 13 U/L Normal 9 - 46 U/L [place] [employer] [facility].; [place] [employer]. AST [Catalytic activity/Vol] 19 U/L Normal 10 - 35 U/L [place] [employer].; [employer]. Bilirubin [Mass/Vol] 0.9 mg/dL Normal 0.2 - 1 .2 mg/dL [place] [employer] [facility].; [employer]. Calcium [Mass/Vol] 10.0 mg/dL Normal 8.6 - 10. 3 mg/dL [place] [employer] [facility].; [employer]. Chloride [Moles/Vol] 104 mmol/L Normal 98 - 11 0 mmol/L [place] [employer] [facility].; [employer]. Cholesterol [Mass/Vol] 227 mg/dL Abnormal 125 - 200 mg/dL [place] [employer] [facility].; [employer]. Cholesterol in HDL [Mass/Vol] 61 mg/dL Normal [place] [employer] [facility].; [employer]. Cholesterol in LDL [Mass/Vol] 136 mg/dL Abnormal [employer] [facility].; [employer]. Cholesterol non HDL [Mass/Vol] 166 mg/dL Abnormal [employer].; [employer]. Cholesterol.total/Ch olesterol in HDL [Mass ratio] 3.7 {ratio} Normal [place] [employer].; [employer]. CO2 [Moles/Vol] 26 mmol/L Normal 19 - 30 mmol/L [place] [employer].; [employer]. Creatinine [Mass/Vol] 1.51 mg/dL Abnormal 0.70 - 1.25 mg/dL [facility], [facility].; [facility], [facility]. GFR/1.73 sq M.predicted among blacks MDRD (S/P/Bld) [Vol rate/Area] 55 {ML/MIN/1.73M2} Abnormal [facility], [facility].; [facility], [facility]. GFR/1.73 sq M.predicted MDRD (S/P/Bld) [Vol rate/Area] 47 {ML/MIN/1.73M2} Abnormal [facility], [facility].; [facility], [facility]. Globulin (S) [Mass/Vol] 2.3 g/dL Normal 1.9 - 3.7 g/dL [facility], [facility].; [facility], [facility]. Glucose [Mass/Vol] 83 mg/dL Normal 65 - 99 mg/dL [facility], [facility].; [place] [employer] [facility], [facility]. Potassium [Moles/Vol] 4.3 mmol/L Normal 3.5 - 5.3 mmol/L [facility].; [place] [employer] [facility], [facility]. Protein [Mass/Vol] 7.0 g/dL Normal 6.1 - 8.1 g/dL [facility], [facility].; [place] [employer] [facility], [facility]. Sodium [Moles/Vol] 141 mmol/L Normal 135 - 146 mmol/L [facility], [facility].; [place] [employer] [facility], [facility]. Triglyceride [Mass/Vol] 150 mg/dL Abnormal [facility], [facility].; [facility], [facility]. Urea nitrogen [Mass/Vol] 15 mg/dL Normal 7 - 25 mg/dL [facility], [facility].; [place] [employer] [facility], [facility]. Urea nitrogen/Creatinine [Mass ratio] 9.7 mg/mg Normal 6 - 22 [facility], [facility].; [place] [employer] [facility], [facility]. Laboratory - Chemistry and C hemistry - challengeon 11-05-2012 Albumin [Mass/Vol] 4.5 g/dL Normal 3.6 - 5.1 g/dL [facility], [facility].; [place] [employer] [facility], [facility]. Albumin/Globulin [Mass ratio] 2.0 {ratio} Normal 1.0 - 2.5 [facility].; [facility], [facility]. ALP [Catalytic activity/Vol] 58 U/L Normal 40 - 115 U/L [facility].; [facility], [facility]. ALT [Catalytic activity/Vol] 13 U/L Normal 9 - 46 U/L [facility], [facility]. AST [Catalytic activity/Vol] 23 U/L Normal 10 - 35 U/L [facility].; [facility]. Bilirubin [Mass/Vol] 0.9 mg/dL Normal 0.2 - 1 .2 mg/dL [facility].; [facility], [facility]. Calcium [Mass/Vol] 9.5 mg/dL Normal 8.6 - 10. 3 mg/dL [facility].; [facility]. Chloride [Moles/Vol] 107 mmol/L Normal 98 - 11 0 mmol/L [facility].; [facility], [facility]. Cholesterol [Mass/Vol] 199 mg/dL Normal 125 - 200 mg/dL [facility].; [facility]. Cholesterol in HDL [Mass/Vol] 49 mg/dL Normal [facility].; [facility]. Cholesterol in LDL [Mass/Vol] 129 mg/dL Normal [facility].; [place] [employer] [facility]. Cholesterol non HDL [Mass/Vol] 150 mg/dL Normal [facility].; [place] [employer] [facility]. Cholesterol.total/Ch olesterol in HDL [Mass ratio] 4.1 {ratio} Normal [facility].; [facility]. CO2 [Moles/Vol] 28 mmol/L Normal 19 - 30 mmol/L [facility].; [place] [employer] [facility], [facility]. Creatinine [Mass/Vol] 1.52 mg/dL Abnormal 0.70 - 1.25 mg/dL [facility].; [facility], [facility]. GFR/1.73 sq M.predicted among blacks MDRD (S/P/Bld) [Vol rate/Area] 55 {ML/MIN/1.73M2} Abnormal [facility].; [facility], [facility]. GFR/1.73 sq M.predicted MDRD (S/P/Bld) [Vol rate/Area] 47 {ML/MIN/1.73M2} Abnormal [facility]; [facility] Globulin (S) [Mass/Vol] 2.2 g/dL Normal 1.9 - 3.7 g/dL [facility]; [facility], [facility] Glucose [Mass/Vol] 83 mg/dL Normal 65 - 99 mg/dL [facility]; [facility] Potassium [Moles/Vol] 4.1 mmol/L Normal 3.5 - 5.3 mmol/L [facility]; [facility], [facility] Protein [Mass/Vol] 6.7 g/dL Normal 6.1 - 8.1 g/dL [facility]; [facility], [facility]. Sodium [Moles/Vol] 143 mmol/L Normal 135 - 146 mmol/L [facility]; [facility] Triglyceride [Mass/Vol] 105 mg/dL Normal [facility]; [facility] Urea nitrogen [Mass/Vol] 20 mg/dL Normal 7 - 25 mg/dL [facility]; [facility] Urea nitrogen/Creatinine [Mass ratio] 13.1 mg/mg Normal 6 - 22 [facility]; [place] [employer] [facility] Laboratory - Microbiology an d Antimicrobial susceptibilityon 01-23-2011 Amikacin Disk diffusion (KB) [Susc] <=16 Normal [facility]; [facility] Work Phone: Bacteria identified # 2 Cx Nom (Unsp spec) SEE NOTE Normal [facility]. Bacteria identified Cx Nom (Unsp spec) SEE NOTE Abnormal [facility]; [facility], [facility] Cefepime [Susc] <=4 Normal [facility]; [place] [employer], [facility] Work Phone: cefTAZidime Disk diffusion (KB) [Susc] 4 Normal [facility]; [facility] Work Phone: Ciprofloxacin [Susc] <=1 Normal [facility]; [facility] Work Phone: Gentamicin [Susc] <=4 Normal [facility]; [facility]. Work Phone: Imipenem [Susc] <=1 Normal [facility]; [facility] Work Phone: levoFLOXacin [Susc] <=2 Normal [facility]; [facility] Work Phone: Meropenem [Susc] <=1 Normal [facility]; [facility] Work Phone: Piperacillin+Tazobac leyva [Susc] <=16 Normal [facility]; [facility] Work Phone: Tobramycin [Susc] <=4 Normal [facility]; [facility] Work Phone: Laboratory - Specimen inform ationon 01-23-2011 Specimen source Nom (Unsp spec) OTHER-RT LOWER LEG Normal [facility]; [facility] Laboratory - Chemistry and C hemistry - challengeon 08-09-2010 Bilirubin Ql (U) Negative Normal [facility]; [facility] Ketones Ql (U) Negative Normal [facility]; [facility] pH (U) 6.5 [pH] Normal 4.6 - 8.0 [facility]; [facility] Specific gravity (U) [Rel density] 1.010 Normal 1.001 - 1.025 [facility]; [facility] Laboratory - Hematology and Cell countson 08-09-2010 Hemoglobin Ql (U) Negative Normal [facility]; [facility] Laboratory - Specimen inform ationon 08-09-2010 Appearance (U) clear Normal [facility]; [employer]. Color (U) yellow Normal [place] [employer]. Laboratory - Urinalysison Glucose Test strip (U) [Mass/Vol] Negative Normal [facility].; [employer], [place] Leukocyte esterase Test strip Ql (U) Negative Normal [place] [employer].; [employer], [place] Nitrite Ql (U) Negative Normal [facility].; [employer]. Protein Ql (U) Negative Normal [facility].; [employer]. No Panel Informationon 08-09 UA - UROBILINOGEN .2 Normal [place] [employer].; [employer]. Laboratory - Chemistry and C hemistry - challengeon 08-02-2010 Albumin [Mass/Vol] 4.5 g/dL Normal 3.6 - 5.1 g/dL [facility].; [employer], [place] Albumin/Globulin [Mass ratio] 2.3 {ratio} Abnormal 1.0 - 2.1 [place] [employer].; [employer]. ALP [Catalytic activity/Vol] 60 U/L Normal 40 - 115 U/L [place] [employer].; [employer], [place] ALT [Catalytic activity/Vol] 12 U/L Normal 9 - 60 U/L [place] [employer] [facility].; [employer]. AST [Catalytic activity/Vol] 14 U/L Normal 10 - 35 U/L [place] [employer] [facility].; [employer]. Bilirubin [Mass/Vol] 0.7 mg/dL Normal 0.2 - 1 .2 mg/dL [place] [employer].; [employer], [place] Calcium [Mass/Vol] 9.5 mg/dL Normal 8.6 - 10. 2 mg/dL [place] [employer].; [employer], [place] Chloride [Moles/Vol] 108 mmol/L Normal 98 - 11 0 mmol/L [place] [employer].; [employer], [place] Cholesterol [Mass/Vol] 202 mg/dL Abnormal 125 - 200 mg/dL [place] [employer].; [employer]. Cholesterol in HDL [Mass/Vol] 52 mg/dL Normal [facility].; [facility], [facility]. Cholesterol in LDL [Mass/Vol] 128 mg/dL Normal [facility].; [facility], [facility]. Cholesterol.total/Ch olesterol in HDL [Mass ratio] 3.9 {ratio} Normal [facility].; [facility]. CO2 [Moles/Vol] 25 mmol/L Normal 21 - 33 mmol/L [facility].; [place] [employer], [facility]. Creatinine [Mass/Vol] 1.73 mg/dL Abnormal 0.76 - 1.46 mg/dL [facility].; [facility], [facility]. GFR/1.73 sq M.predicted among blacks MDRD (S/P/Bld) [Vol rate/Area] 48 {ML/MIN/1.73M2} Abnormal [facility].; [facility], [facility]. GFR/1.73 sq M.predicted MDRD (S/P/Bld) [Vol rate/Area] 41 {ML/MIN/1.73M2} Abnormal [place] [employer] [facility].; [place] [employer] [facility], [facility]. Globulin (S) [Mass/Vol] 2.0 g/dL Abnormal 2.1 - 3.7 g/dL [facility].; [place] [employer] [facility] Glucose [Mass/Vol] 90 mg/dL Normal 65 - 99 mg/dL [facility].; [place] [employer] [facility], [facility]. Potassium [Moles/Vol] 4.2 mmol/L Normal 3.5 - 5.3 mmol/L [facility].; [place] [employer] [facility], [facility]. Prostate specific Ag [Mass/Vol] ng/mL Normal 0.0 - 4.0 ng/mL [facility].; [place] [employer] [facility], [facility]. Protein [Mass/Vol] 6.5 g/dL Normal 6.2 - 8.3 g/dL [facility], [facility].; [place] [employer] Sodium [Moles/Vol] 142 mmol/L Normal 135 - 146 mmol/L [facility].; [place] [employer] [facility], [facility]. Triglyceride [Mass/Vol] 108 mg/dL Normal [facility]; [facility] Urea nitrogen [Mass/Vol] 19 mg/dL Normal 7 - 25 mg/dL [facility] Urea nitrogen/Creatinine [Mass ratio] 11.0 mg/mg Normal 6 - 22 [facility]; [facility], [facility] Vital Signs Date Time Vital Sign Value Performing Clinician Facility 07-21-2024 10:14-0400 Body height 186.69 cm Livia Torres LPN [facility] 07-21-2024 10:14-0400 Body mass index (BMI) [Ratio] 27.07 kg/m2 Livia Torres LPN [facility].; [facility] 07-21-2024 10:14-0400 Body surface area Derived from formula 2.2 m2 Livia Torres LPN [facility] 07-21-2024 10:14-0400 Body weight 94.35 kg Livia Torres LPN [facility].; [facility] 07-21-2024 10:14-0400 Diastolic blood pressure 72 mm[Hg] Livia Torres LPN [facility], [facility]. Comment on above: Patient Position: Sitting; Cuff Location : Left Arm; Cuff Size: Standard 07-21-2024 10:14-0400 Heart rate 64 /min Livia Torres LPN [facility].; [facility], [facility]. Comment on above: Pattern: Regular 07-21-2024 10:14-0400 Systolic blood pressure 120 mm[Hg] Livia Torres LPN [facility].; [facility], [facility]. Comment on above: Patient Position: Sitting; Cuff Location : Left Arm; Cuff Size: Standard 08-02-2023 09:54-0400 Body height 186.69 cm David Mejias LPN [facility], [facility].; [facility], [facility]. 08-02-2023 09:54-0400 Body mass index (BMI) [Ratio] 26.55 kg/m2 David Mejias LPN [facility], [facility].; [facility]. 08-02-2023 09:54-0400 Body surface area Derived from formula 2.18 m2 Davidluiza Mejias [facility], [facility].; [facility], [facility]. 08-02-2023 09:54-0400 Body weight 92.53 kg Davidluiza Mejias [facility], [facility].; [facility], [facility]. 08-02-2023 09:54-0400 Diastolic blood pressure 64 mm[Hg] Davidluiza Mejias [facility].; [facility], [facility]. Comment on above: Patient Position: Sitting; Cuff Location : Left Arm; Cuff Size: Standard 08-02-2023 09:54-0400 Heart rate 62 /min Davidluiza Mejias [facility], [facility].; [facility] Comment on above: Pattern: Regular 08-02-2023 09:54-0400 Systolic blood pressure 104 mm[Hg] Davidluiza Mejias [facility], [facility].; [facility], [facility]. Comment on above: Patient Position: Sitting; Cuff Location : Left Arm; Cuff Size: Standard 07-17-2022 10:40-0400 Body height 186.69 cm Aster Garnica [facility] DIRECTOR [facility], [facility].; [facility], [facility]. 07-17-2022 10:40-0400 Body mass index (BMI) [Ratio] 26.55 kg/m2 Aster Garnica [facility], [facility].; [facility], [facility]. 07-17-2022 10:40-0400 Body surface area Derived from formula 2.18 m2 Aster Garnica [facility] DIRECTOR [facility], [facility].; [facility], [facility]. 07-17-2022 10:40-0400 Body weight 92.53 kg Aster Garnica [facility], [facility].; [facility], [facility]. 07-17-2022 10:40-0400 Diastolic blood pressure 66 mm[Hg] Aster Garnica [facility], [facility].; [facility], [facility]. Comment on above: Patient Position: Sitting; Cuff Location : Left Arm; Cuff Size: Large 07-17-2022 10:40-0400 Heart rate 65 /min Aster Ganrica [facility] DIRECTOR [facility], [facility] [employer] [facility], [place]. Comment on above: Pattern: Regular 07-17-2022 10:40-0400 Systolic blood pressure 115 mm[Hg] Aster Garnica LPN [facility], [facility], [place]. Comment on above: Patient Position: Sitting; Cuff Location : Left Arm; Cuff Size: Large 11-06-2021 11:30-0400 Body height 186.69 cm Aster Garnica [facility], [facility].; [employer] [facility], [place] 11-06-2021 11:30-0400 Body mass index (BMI) [Ratio] 27.2 kg/m2 Aster Garnica [facility], [facility].; [facility], [place]. 11-06-2021 11:30-0400 Body surface area Derived from formula 2.2 m2 Janel Stuckey [facility], [facility].; [facility], [place]. 11-06-2021 11:30-0400 Body weight 94.8 kg Aster Garnica [facility], [facility].; [facility], [place]. 11-06-2021 11:30-0400 Diastolic blood pressure 91 mm[Hg] Aster Garnica [facility] DIRECTOR [facility], [facility].; [facility], [place]. Comment on above: Patient Position: Sitting; Cuff Location : Left Arm; Cuff Size: Large 11-06-2021 11:30-0400 Heart rate 68 /min Aster Garnica [facility] DIRECTOR [facility], [facility].; [employer]. Comment on above: Pattern: Regular 11-06-2021 11:30-0400 Systolic blood pressure 125 mm[Hg] Aster Garnica [facility], [facility].; [facility], [place]. Comment on above: Patient Position: Sitting; Cuff Location : Left Arm; Cuff Size: Large 10-18-2021 14:19-0400 Body height 186.69 cm Aster Garnica [facility], [facility].; [facility], [place]. 10-18-2021 14:19-0400 Body mass index (BMI) [Ratio] 27.2 kg/m2 Aster Garnica [facility] DIRECTOR [facility], [facility].; [facility], [facility] 10-18-2021 14:19-0400 Body surface area Derived from formula 2.2 m2 Aster Garnica [facility] DIRECTOR [facility], [facility].; [facility] [employer] [facility], Inc. 10-18-2021 14:19-0400 Body weight 94.8 kg Aster Garnica [facility], [facility].; [employer] [facility], Inc[facility] 10-18-2021 14:19-0400 Diastolic blood pressure 81 mm[Hg] Aster Garnica [facility], [facility].; [employer] [facility], Inc. Comment on above: Patient Position: Sitting; Cuff Location : Left Arm; Cuff Size: Large 10-18-2021 14:19-0400 Heart rate 75 /min Aster Garnica [facility], [facility].; [employer] Comment on above: Pattern: Regular 10-18-2021 14:19-0400 Systolic blood pressure 138 mm[Hg] Aster Garnica [facility], [facility].; [employer] [facility], Inc. Comment on above: Patient Position: Sitting; Cuff Location : Left Arm; Cuff Size: Large 07-11-2021 10:59-0400 Body height 186.69 cm Aster Garnica [facility], [facility].; [place] [employer] [facility], Inc. 07-11-2021 10:59-0400 Body mass index (BMI) [Ratio] 27.33 kg/m2 Aster Garnica [facility], [facility].; [place] [employer] [facility], Inc[facility] 07-11-2021 10:59-0400 Body surface area Derived from formula 2.21 m2 Janel Stuckey [facility], [facility].; [facility] [employer] [employer] 07-11-2021 10:59-0400 Body weight 95.26 kg Aster Garnica [facility], [facility].; [employer], [employer] 07-11-2021 10:59-0400 Diastolic blood pressure 81 mm[Hg] Aster Garnica [facility], [facility].; [employer]. Comment on above: Patient Position: Sitting; Cuff Location : Left Arm; Cuff Size: Large 07-11-2021 10:59-0400 Heart rate 60 /min Aster Garnica LPN [facility], [facility].; [facility], [employer] Comment on above: Pattern: Regular 07-11-2021 10:59-0400 Systolic blood pressure 127 mm[Hg] Aster Garnica [facility], [facility].; [facility], [facility] Comment on above: Patient Position: Sitting; Cuff Location : Left Arm; Cuff Size: Large 06-21-2021 08:39-0400 Body height 186.69 cm Erica Akins [facility], [facility].; [facility], [employer] 06-21-2021 08:39-0400 Body mass index (BMI) [Ratio] 27.07 kg/m2 Erica Akins [facility], Inc.; [employer] 06-21-2021 08:39-0400 Body surface area Derived from formula 2.2 m2 Erica Akins [facility], Inc.; [facility], [employer] 06-21-2021 08:39-0400 Body weight 94.35 kg Erica Akins [facility], [facility].; [facility], [facility] 06-21-2021 08:39-0400 Diastolic blood pressure 64 mm[Hg] Erica Akins [facility], [facility].; [facility], [place]. Comment on above: Patient Position: Sitting; Cuff Location : Left Arm; Cuff Size: Standard 06-21-2021 08:39-0400 Heart rate 58 /min Erica Tapiar [facility] [employer] [facility], [place].; [facility], [employer] Comment on above: Pattern: Regular 06-21-2021 08:39-0400 Systolic blood pressure 100 mm[Hg] Erica Tapiar [facility] [employer] [facility], Inc.; [facility], [employer] Comment on above: Patient Position: Sitting; Cuff Location : Left Arm; Cuff Size: Standard 06-28-2020 08:04-0400 Body height 186.69 cm Fernando Ang MD Work Phone: [employer] 06-28-2020 08:04-0400 Body mass index (BMI) [Ratio] 26.81 kg/m2 Fernando Ang MD Work Phone: [employer].; [employer]. 06-28-2020 08:04-0400 Body surface area Derived from formula 2.19 m2 Fernando Ang MD Work Phone: [employer] 06-28-2020 08:04-0400 Body weight 93.44 kg Fernando Ang MD Work Phone: [employer]. 06-28-2020 08:04-0400 Diastolic blood pressure 76 mm[Hg] Fernando Ang MD Work Phone: [employer]; [employer]. Comment on above: Patient Position: Sitting; Cuff Location : Left Arm; Cuff Size: Large 06-28-2020 08:04-0400 Heart rate 75 /min Fernando Ang MD Work Phone: [employer]; [employer]. Comment on above: Pattern: Regular 06-28-2020 08:04-0400 Systolic blood pressure 128 mm[Hg] Fernando Ang MD Work Phone: [employer]. Comment on above: Patient Position: Sitting; Cuff Location : Left Arm; Cuff Size: Large 07-27-2019 11:33-0400 Body height 186.69 cm Elise Pratt RN [employer]. 07-27-2019 11:33-0400 Body mass index (BMI) [Ratio] 26.29 kg/m2 Elise Pratt RN [employer]. 07-27-2019 11:33-0400 Body surface area Derived from formula 2.17 m2 Elise Pratt RN [facility] Inc.; [employer]. 07-27-2019 11:33-0400 Body weight 91.63 kg Elise Pratt RN [employer]. 07-27-2019 11:33-0400 Diastolic blood pressure 60 mm[Hg] Elise Pratt RN [employer]. Comment on above: Patient Position: Sitting; Cuff Location : Left Arm; Cuff Size: Standard 07-27-2019 11:33-0400 Heart rate 72 /min Elise Pratt RN [employer]. Comment on above: Pattern: Regular 07-27-2019 11:33-0400 Systolic blood pressure 101 mm[Hg] Elise Pratt RN [employer]. Comment on above: Patient Position: Sitting; Cuff Location : Left Arm; Cuff Size: Standard 09-19-2018 10:39-0400 Body height 186.69 cm Elise Pratt RN [employer]. 09-19-2018 10:39-0400 Body mass index (BMI) [Ratio] 26.03 kg/m2 Elise Pratt RN [employer]. 09-19-2018 10:39-0400 Body surface area Derived from formula 2.16 m2 Elise Pratt RN [employer]. 09-19-2018 10:39-0400 Body temperature 98.2 [degF] Elise Pratt RN [employer] [employer]. Comment on above: Method: Tympanic 09-19-2018 10:39-0400 Body weight 90.72 kg Elise Pratt RN [employer] 09-19-2018 10:39-0400 Diastolic blood pressure 61 mm[Hg] Elise Pratt RN [employer] [employer]. Comment on above: Patient Position: Sitting; Cuff Location : Left Arm; Cuff Size: Standard 09-19-2018 10:39-0400 Heart rate 80 /min Elise Pratt RN [place] [employer] [facility], Inc.; [facility], [place]. Comment on above: Pattern: Regular 09-19-2018 10:39-0400 Systolic blood pressure 99 mm[Hg] Elise Pratt RN [place] [employer] [facility], Inc.; [facility], [employer] Comment on above: Patient Position: Sitting; Cuff Location : Left Arm; Cuff Size: Standard 08-27-2018 09:06-0400 Body height 186.69 cm Janel Danika CARO [employer] [facility], Inc.; [facility], [employer] 08-27-2018 09:06-0400 Body mass index (BMI) [Ratio] 26.42 kg/m2 JanelYolanda Garnica LPN [employer] [facility], Inc.; [facility], [employer] 08-27-2018 09:06-0400 Body surface area Derived from formula 2.18 m2 JanelYolanda Garnica LPN [place] [employer] [facility], Inc.; [facility], [employer] 08-27-2018 09:06-0400 Body weight 92.08 kg Janelrosa Garnica LPN [employer] [facility], [facility].; [facility], [employer] 08-27-2018 09:06-0400 Diastolic blood pressure 76 mm[Hg] JanelYolanda Garnica LPN [employer] [facility], [facility].; [facility], [employer] Comment on above: Patient Position: Sitting; Cuff Location : Left Arm; Cuff Size: Large 08-27-2018 09:06-0400 Heart rate 72 /min Janelrosa Garnica LPN [employer] [facility], [facility].; [employer]. Comment on above: Pattern: Regular 08-27-2018 09:06-0400 Systolic blood pressure 122 mm[Hg] Janelrosa Garnica LPN [employer] [facility], [facility].; [employer]. Comment on above: Patient Position: Sitting; Cuff Location : Left Arm; Cuff Size: Large 08-13-2018 08:58-0400 Body height 186.69 cm JanelYolanda Garnica LPN [employer] [facility], [facility].; [facility], [employer] 08-13-2018 08:58-0400 Diastolic blood pressure 74 mm[Hg] Aster Garnica [facility] DIRECTOR [facility], [facility] [employer] Comment on above: Patient Position: Sitting; Cuff Location : Left Arm; Cuff Size: Large 08-13-2018 08:58-0400 Heart rate 79 /min Aster Garnica [facility] DIRECTOR [facility], [facility].; [facility], [employer] Comment on above: Pattern: Regular 08-13-2018 08:58-0400 Systolic blood pressure 131 mm[Hg] Aster Garnica [facility] DIRECTOR [facility], [facility].; [facility] [facility], [employer] Comment on above: Patient Position: Sitting; Cuff Location : Left Arm; Cuff Size: Large 04-27-2016 09:37-0400 Body temperature 97.5 [degF] Connie Singh MEDICAL CENTER DIRECTOR [facility], [facility] [facility], [employer] 04-27-2016 09:37-0400 Body weight 89.81 kg Connie Singh LPN [facility], [facility].; [facility] [facility], [employer] 04-27-2016 09:37-0400 Diastolic blood pressure 63 mm[Hg] Connie Singh MEDICAL CENTER DIRECTOR [facility], [facility] [facility], [employer] Comment on above: Patient Position: Sitting; Cuff Location : Left Arm; Cuff Size: Standard 04-27-2016 09:37-0400 Heart rate 72 /min Connie Singh LPN [facility], [facility].; [facility], [employer] Comment on above: Pattern: Regular 04-27-2016 09:37-0400 Systolic blood pressure 111 mm[Hg] Connie Singh LPN [facility], [facility] [employer]. Comment on above: Patient Position: Sitting; Cuff Location : Left Arm; Cuff Size: Standard 11-25-2015 10:49-0400 Body weight 93.9 kg Connie Singh LPN [facility], [facility], [employer] 11-25-2015 10:49-0400 Diastolic blood pressure 67 mm[Hg] Connie Singh LPN [facility], [facility] [employer] Comment on above: Patient Position: Sitting; Cuff Location : Left Arm; Cuff Size: Standard 11-25-2015 10:49-0400 Heart rate 72 /min Connie James Francisco [facility], Inc.; [employer] [facility], [place]. Comment on above: Pattern: Regular 11-25-2015 10:49-0400 Systolic blood pressure 105 mm[Hg] Connie Singh [facility], [facility].; [facility], [place]. Comment on above: Patient Position: Sitting; Cuff Location : Left Arm; Cuff Size: Standard 07-08-2015 09:21-0400 Body height 186.69 cm Aster Garnica [facility], [facility].; [facility], [place]. 07-08-2015 09:21-0400 Body mass index (BMI) [Ratio] 25.38 kg/m2 [facility] Danika [facility], Inc.; [employer], [place]. 07-08-2015 09:21-0400 Body surface area Derived from formula 2.14 m2 [facility] Danika [facility], [facility].; [employer], [place]. 07-08-2015 09:21-0400 Body weight 88.45 kg Aster Garnica [facility], [facility].; [facility], [place]. 07-08-2015 09:21-0400 Diastolic blood pressure 83 mm[Hg] Aster Garnica [facility], [facility], [place]. Comment on above: Patient Position: Sitting; Cuff Location : Left Arm; Cuff Size: Large 07-08-2015 09:21-0400 Heart rate 76 /min JanelYolanda Garnica [facility], [facility].; [employer]. Comment on above: Pattern: Regular 07-08-2015 09:21-0400 Systolic blood pressure 162 mm[Hg] JanelYolanda Garnica [facility], [place].; [employer]. Comment on above: Patient Position: Sitting; Cuff Location : Left Arm; Cuff Size: Large 11-11-2013 08:52-0400 Body height 186.69 cm Fernando Ang MD Work Phone: [place] [employer] [facility], [place].; [employer]. 11-11-2013 08:52-0400 Body mass index (BMI) [Ratio] 25.51 kg/m2 Fernando Ang MD Work Phone: [employer] 11-11-2013 08:52-0400 Body surface area Derived from formula 2.14 m2 Fernando Ang MD Work Phone: [employer] 11-11-2013 08:52-0400 Body weight 88.91 kg Fernando Ang MD Work Phone: [employer] 11-11-2013 08:52-0400 Diastolic blood pressure 78 mm[Hg] Fernando Ang MD Work Phone: [employer]. Comment on above: Patient Position: Sitting; Cuff Location : Left Arm; Cuff Size: Standard 11-11-2013 08:52-0400 Heart rate 72 /min Fernando Ang MD Work Phone: [employer]. Comment on above: Pattern: Regular 11-11-2013 08:52-0400 Systolic blood pressure 124 mm[Hg] Fernando Ang MD Work Phone: [employer]. Comment on above: Patient Position: Sitting; Cuff Location : Left Arm; Cuff Size: Standard 11-17-2012 13:15-0400 Body weight 90.27 kg Fernando Ang MD Work Phone: [employer] 11-17-2012 13:15-0400 Diastolic blood pressure 85 mm[Hg] Fernando Ang MD Work Phone: [employer]. Comment on above: Patient Position: Sitting; Cuff Location : Left Arm; Cuff Size: Standard 11-17-2012 13:15-0400 Heart rate 70 /min Fernando Ang MD Work Phone: [employer]. Comment on above: Pattern: Regular 11-17-2012 13:15-0400 Systolic blood pressure 144 mm[Hg] Fernando [facility]: [facility] [place] [facility]. Comment on above: Patient Position: Sitting; Cuff Location : Left Arm; Cuff Size: Standard 11-23-2011 08:20-0400 Body height 186.69 cm Saadia Rodnathalieumamiya ELIZONDO [facility].; [employer] 11-23-2011 08:20-0400 Body mass index (BMI) [Ratio] 26.19 kg/m2 Saadia Rodnatalie [place] [employer] [facility].; [employer] 11-23-2011 08:20-0400 Body surface area Derived from formula 2.17 m2 Saadia [facility]natalie [facility] [employer] [facility].; [employer] 11-23-2011 08:20-0400 Body temperature 96.8 [degF] Saadia Rodnatalie [place] [employer] Comment on above: Method: Tympanic 11-23-2011 08:20-0400 Body weight 91.29 kg Saadia Rodnatalie [place] [employer] [facility].; [employer] 11-23-2011 08:20-0400 Diastolic blood pressure 80 mm[Hg] Saadia Rodnatalie [place] [employer] [facility].; [employer]. Comment on above: Patient Position: Sitting; Cuff Location : Left Arm; Cuff Size: Standard 11-23-2011 08:20-0400 Heart rate 91 /min Saadia Wenatalie ELIZONDO [place] [employer]. Comment on above: Pattern: Regular 11-23-2011 08:20-0400 Inhaled oxygen concentration 21 % Saadia Marcelnatalie [place] [employer] [facility].; [employer]. Comment on above: Room air 11-23-2011 08:20-0400 SaO2% (BldA) [Mass fraction] 98 % Saadia Wenatalie [place] [employer] 11-23-2011 08:20-0400 Systolic blood pressure 144 mm[Hg] Saadia Prakash LPN [facility], [place].; [employer]. Comment on above: Patient Position: Sitting; Cuff Location : Left Arm; Cuff Size: Standard 07-24-2011 16:23-0400 Body height 186.69 cm Sonya Romero LPN [facility], [facility].; [employer] 07-24-2011 16:23-0400 Body mass index (BMI) [Ratio] 26.29 kg/m2 Sonya Romero LPN [place] [employer] [facility], [place].; [employer]. 07-24-2011 16:23-0400 Body surface area Derived from formula 2.17 m2 Sonya Romero LPN [facility], [place].; [employer]. 07-24-2011 16:23-0400 Body temperature 99.6 [degF] Sonya Romero [place] [employer] [facility], [place].; [employer]. Comment on above: Method: Tympanic 07-24-2011 16:23-0400 Body weight 91.63 kg Sonya Romero LPN [place] [employer] [facility], [place].; [employer]. 07-24-2011 16:23-0400 Diastolic blood pressure 72 mm[Hg] Sonya Romero LPN [place] [employer] [facility], [place].; [employer]. Comment on above: Patient Position: Sitting; Cuff Location : Left Arm; Cuff Size: Standard 07-24-2011 16:23-0400 Heart rate 96 /min Sonya Romero LPN [place] [employer] [facility], [place].; [employer]. Comment on above: Pattern: Regular 07-24-2011 16:23-0400 Inhaled oxygen concentration 21 % Sonya Romero LPN [place] [employer] [facility], [place].; [employer]. Comment on above: Room air 07-24-2011 16:23-0400 SaO2% (BldA) [Mass fraction] 94 % Sonya Romero LPN [place] [employer] [facility], [place].; [employer]. 07-24-2011 16:23-0400 Systolic blood pressure 135 mm[Hg] Sonya Romero [facility], [facility].; [employer]. Comment on above: Patient Position: Sitting; Cuff Location : Left Arm; Cuff Size: Standard 01-23-2011 10:14050 Body height 186.69 cm Lilliana Valerie [facility] DIRECTOR [facility], [facility] [employer] 01-23-2011 10:14050 Body mass index (BMI) [Ratio] 26.55 kg/m2 Lilliana C [place] [facility] DIRECTOR [facility], [facility].; [employer], [place] 01-23-2011 10:14050 Body surface area Derived from formula 2.18 m2 Lilliana C [place] [facility] DIRECTOR [facility], [facility].; [employer], [place] 01-23-2011 10: Body weight 92.53 kg Lilliana Valerie Malloy [facility], [place].; [employer]. 01-23-2011 10:050 Diastolic blood pressure 69 mm[Hg] Lilliana Valerie [facility] DIRECTOR [facility], [place].; [employer]. Comment on above: Patient Position: Sitting; Cuff Location : Left Arm; Cuff Size: Large 01-23-2011 10:050 Heart rate 100 /min Lilliana Valerie Malloy [facility] DIRECTOR [facility], [facility] [employer]. Comment on above: Pattern: Regular 01-23-2011 10:0500 Systolic blood pressure 119 mm[Hg] Lilliana C [facility] DIRECTOR [facility], [facility] [employer]. Comment on above: Patient Position: Sitting; Cuff Location : Left Arm; Cuff Size: Large 01-18-2011 15:120500 Body weight 92.53 kg Franny Foley LPN [place] [employer] [facility], Inc.; [employer]. 01-18-2011 15:0500 Diastolic blood pressure 79 mm[Hg] Franny Foley LPN [place] [employer] [facility], [facility].; [employer]. Comment on above: Patient Position: Sitting; Cuff Location : Left Arm; Cuff Size: Standard 01-18-2011 15:12-0500 Heart rate 88 /min Franny [facility]abach [facility] [employer], [place]. Comment on above: Pattern: Regular 01-18-2011 15:12-0500 Systolic blood pressure 133 mm[Hg] Franny Foley [facility], [facility].; [employer] Comment on above: Patient Position: Sitting; Cuff Location : Left Arm; Cuff Size: Standard 08-22-2010 14:20-0400 Body height 186.69 cm Aster Garnica [facility], [facility].; [employer] [facility], [place] 08-22-2010 14:20-0400 Body mass index (BMI) [Ratio] 26.29 kg/m2 Janel Danika [facility], [facility].; [employer] 08-22-2010 14:20-0400 Body surface area Derived from formula 2.17 m2 [facility].; [employer] 08-22-2010 14:20-0400 Body temperature 98 [degF] JanelYolanda Garnica [facility], [facility] [employer] [facility], [place]. Comment on above: Method: Tympanic 08-22-2010 14:20-0400 Body weight 91.63 kg Aster Garnica [facility], [facility] [employer] [facility] 08-09-2010 09:59-0400 Body height 186.69 cm Janel Danika [facility], [facility].; [employer] 08-09-2010 09:59-0400 Body mass index (BMI) [Ratio] 26.29 kg/m2 Janel Danika [facility], [facility].; [employer] 08-09-2010 09:59-0400 Body surface area Derived from formula 2.17 m2 [facility] Sylva [place] [employer] [facility], Inc.; [employer] [employer] 08-09-2010 09:59-0400 Body weight 91.63 kg Aster Garnica [place] [employer] [facility], Inc.; [employer] 08-09-2010 09:59-0400 Diastolic blood pressure 81 mm[Hg] Aster Garnica [facility] DIRECTOR [employer] [facility], Inc.; [employer] Comment on above: Patient Position: Sitting; Cuff Location : Left Arm; Cuff Size: Large 08-09-2010 09:59-0400 Heart rate 81 /min Aster Garnica [facility] DIRECTOR [employer] [facility], Inc.; [employer] [employer] Comment on above: Pattern: Regular 08-09-2010 09:59-0400 Systolic blood pressure 136 mm[Hg] Aster Garnica [facility] DIRECTOR [employer] [employer] Comment on above: Patient Position: Sitting; Cuff Location : Left Arm; Cuff Size: Large Encounters Encounter Date Encounter Type Care Provider Facility Start: 08-26-2024 ambulatory Fernando Ang Facility:[facility] Start: 07-21-2024 End: 07-21-2024 Patient encounter procedure Fernando Ang MD Work Phone: [employer] [employer] Start: 07-21-2024 End: 07-21-2024 Periodic preventive med est patient 65yrs& older Fernando Ang MD Work Phone: [employer]. Start: 07-21-2024 Patient encounter procedure [facility]ig[facility]ith [facility] DIRECTOR [employer]. Start: 07-15-2024 End: 07-15-2024 Orders Fernando Ang MD Work Phone: [employer]. Start: 07-10-2024 End: 07-10-2024 Historical Summary Fernando Ang MD Work Phone: [employer]. Start: 07-02-2024 End: 07-02-2024 Historical Summary Fernando Ang MD Work Phone: [employer]. Start: 05-21-2024 End: 05-21-2024 Orders Fernando Ang MD Work Phone: [employer]. Start: 08-02-2023 End: 08-02-2023 Patient encounter procedure Fernando Ang MD Work Phone: [employer]. Start: 08-02-2023 End: 08-02-2023 Periodic preventive med est patient 65yrs& older Fernando Ang MD Work Phone: [employer]. Start: 07-30-2023 End: 07-30-2023 Orders Fernando Ang MD Work Phone: [employer]. Start: 07-16-2023 End: 07-16-2023 Orders Fernando Ang MD Work Phone: [employer]. Start: 10-04-2022 End: 10-04-2022 ambulatory [facility] Work Phone: Start: 10-04-2022 End: 10-04-2022 Patient encounter procedure [facility], [facility] Work Phone: Start: 07-17-2022 End: 07-17-2022 Initial preventive medicine new patient 67yrs&> Fernando Ang MD Work Phone: [employer]. Start: 07-17-2022 End: 07-17-2022 Patient encounter procedure Fernando Ang MD Work Phone: [employer] [employer] Start: 06-11-2022 End: 06-11-2022 Orders Fernando Ang MD Work Phone: [employer]. Start: 11-06-2021 End: 11-06-2021 Office outpatient visit 15 minutes Fernando Ang MD Work Phone: [employer]. Start: 10-18-2021 End: 10-18-2021 Office outpatient visit 15 minutes Fernando Ang MD Work Phone: [employer]. Start: 07-11-2021 End: 07-11-2021 Office outpatient visit 15 minutes Fernando Ang MD Work Phone: [employer]. Start: 06-21-2021 End: 06-21-2021 Patient encounter procedure Fernando Ang MD Work Phone: [employer] [employer] Start: 06-21-2021 End: 06-21-2021 Transitional care manage srvc 14 day discharge Fernando Ang MD Work Phone: [employer] Start: 12-16-2020 End: 12-16-2020 Office outpatient visit 5 minutes Fernando Ang MD Work Phone: [employer] Start: 06-28-2020 End: 06-28-2020 Office outpatient visit 40 minutes Fernando Ang MD Work Phone: [employer] Start: 06-17-2020 End: 06-17-2020 Patient encounter procedure Fernando Ang MD Work Phone: [employer] Start: 10-06-2019 End: 10-06-2019 Medication Fernando Ang MD Work Phone: [employer] Start: 07-27-2019 End: 07-27-2019 Office outpatient visit 40 minutes Fernando Ang MD Work Phone: [employer] Start: 07-22-2019 End: 07-22-2019 Periodic preventive med est patient 40-64yrs Fernando Ang MD Work Phone: [employer] Start: 07-01-2019 End: 07-01-2019 Historical Summary Fernando Ang MD Work Phone: [employer] Start: 11-10-2018 End: 11-10-2018 Historical Summary Fernando Ang MD Work Phone: [employer] Start: 09-19-2018 End: 09-19-2018 Office outpatient visit 15 minutes Fernando Ang MD Work Phone: [employer] Start: 08-27-2018 End: 08-27-2018 Office outpatient visit 15 minutes Fernando Ang MD Work Phone: [employer] Start: 08-13-2018 End: 08-13-2018 Office outpatient visit 15 minutes Fernando Ang MD Work Phone: [employer] Start: 08-05-2018 End: 08-05-2018 Orders Fernando Ang MD Work Phone: [employer]. Start: 08-28-2016 End: 08-28-2016 [facility] Facility:[facility] Start: 04-27-2016 End: 04-27-2016 Office outpatient visit 15 minutes Fernando Ang MD Work Phone: [employer]. Start: 11-25-2015 End: 11-28-2015 Office outpatient visit 15 minutes Fernando Ang MD Work Phone: [employer]. Start: 2015 End: 2015 Office outpatient visit 15 minutes Fernando Ang MD Work Phone: [employer]. Start: 07-19-2015 End: 07-20-2015 Orders Fernando Ang MD Work Phone: [employer]. Start: 07-18-2015 End: 07-18-2015 Orders Fernando Ang MD Work Phone: [employer]. Start: 07-08-2015 End: 07-08-2015 Office outpatient visit 15 minutes Fernando Ang MD Work Phone: [employer]. Start: 07-06-2015 End: 07-06-2015 Orders Fernando Ang MD Work Phone: [employer]. Start: 05-26-2014 End: 05-26-2014 Orders Fernando Ang MD Work Phone: [employer]. Start: 11-11-2013 End: 11-11-2013 Patient encounter procedure Fernando Ang MD Work Phone: [employer]. Start: 11-11-2013 End: 11-11-2013 Routine general medical examination at a health care facility Fernando Ang MD Work Phone: [employer] [employer]. Start: 11-10-2013 End: 11-10-2013 Historical Summary Fernando Ang MD Work Phone: [employer]. Start: 10-30-2013 End: 10-30-2013 Orders Fernando Ang MD Work Phone: [employer]. Start: 10-23-2013 End: 10-23-2013 Orders Fernando Ang MD Work Phone: [employer]. Start: 10-19-2013 End: 10-19-2013 Orders Fernando Ang MD Work Phone: [employer]. Start: 11-17-2012 End: 11-17-2012 Patient encounter procedure Fernando Ang MD Work Phone: [employer]. Start: 11-05-2012 End: 11-05-2012 Orders Fernando Ang MD Work Phone: [employer]. Start: 10-24-2012 End: 10-24-2012 Orders Fernando Ang MD Work Phone: [employer]. Start: 11-23-2011 End: 11-23-2011 Patient encounter procedure Fernando Ang MD Work Phone: [employer]. Start: 07-24-2011 End: 07-24-2011 Patient encounter procedure Fernando Ang MD Work Phone: [employer]. Start: 01-31-2011 End: 01-31-2011 Patient encounter procedure Fernando Ang MD Work Phone: [employer]. Start: 01-23-2011 End: 01-23-2011 Patient encounter procedure Fernando Ang MD Work Phone: [employer]. Start: 01-18-2011 End: 01-18-2011 Patient encounter procedure Fernando Ang MD Work Phone: [employer]. Start: 12-15-2010 End: 12-15-2010 Medication Fernando Ang MD Work Phone: [employer]. Start: 11-21-2010 End: 11-21-2010 Orders Fernando Ang MD Work Phone: [employer]. Start: 10-06-2010 End: 10-06-2010 Medication Fernando Ang MD Work Phone: [employer]. Start: 09-14-2010 End: 09-14-2010 Nursing evaluation of patient and report Fernando Ang MD Work Phone: [employer]. Start: 09-14-2010 End: 09-14-2010 Routine general medical examination at a health care facility Fernando Ang MD Work Phone: [employer] [employer] Start: 08-22-2010 End: 08-22-2010 Patient encounter procedure Fernando Ang MD Work Phone: [employer]. Start: 08-09-2010 End: 08-09-2010 Patient encounter procedure Fernando Ang MD Work Phone: [employer]. Start: 08-09-2010 End: 08-09-2010 Routine general medical examination at a health care facility Fernando Ang MD Work Phone: [employer] [employer] Start: 08-02-2010 End: 08-02-2010 Medication Fernando Ang MD Work Phone: [employer]. Start: 08-02-2010 End: 08-02-2010 Routine general medical examination at a health care facility Fernando Ang MD Work Phone: [employer] [employer] Start: 07-11-2010 End: 07-11-2010 Orders Fernando Ang MD Work Phone: [employer]. Start: 07-11-2010 End: 07-11-2010 Routine general medical examination at a health care facility Fernando Ang MD Work Phone: [employer] [employer] Start: 11-21-2009 End: 11-21-2009 Nursing evaluation of patient and report Fernando Ang MD Work Phone: [employer]. Start: 11-21-2009 End: 11-21-2009 Routine general medical examination at a health care facility Fernando Ang MD Work Phone: [employer] [employer] Patient encounter procedure Aster Garnica LPN [facility]. Patient encounter procedure David Mejias [facility] DIRECTOR [facility] Routine general medi odalys examination at a health care facility Lilliana Malloy LPN [facility] Routine general medi odalys examination at a health care facility Erica Akins CMA [facility].; [facility] Procedures Date Procedure Procedure Detail Performing Clinician Start: 07-21-2024 End: 07-21-2024 Adv care pln/ no alt dcsn mkr docd or refusal Fernando Ang MD Work Phone: Start: 07-21-2024 End: 07-21-2024 Depression screening Fernando Ang MD Work Phone: Start: 07-21-2024 End: 07-21-2024 Falls risk assessment documented Fernando Ang MD Work Phone: Start: 07-21-2024 End: 07-21-2024 Pos clin depres scrn f/u doc Fernando collazo MD Work Phone: Start: 07-21-2024 End: 07-21-2024 PPPS, subseq visit Fernando Ang MD Work Phone: Start: 07-21-2024 End: 07-21-2024 Pt falls assess docd w/o fall/injury past year Fernando Ang MD Work Phone: Start: 07-21-2024 End: 07-21-2024 Scr dep neg, no plan reqd Fernando Ang MD Work Phone: Start: 07-15-2024 End: 07-15-2024 Lab findings surveillance Livia Torres LPN Comment on above: 96 Start: 07-15-2024 End: 07-15-2024 Lipid panel results documented & reviewed Livia Torres LPN Comment on above: TC 251 HDL 51 LDL 16 6 TRI 184 Start: 08-02-2023 End: 08-02-2023 Adv care pln/ no alt dcsn mkr docd or refusal Fernando Ang MD Work Phone: Start: 08-02-2023 End: 08-02-2023 Depression screening Fernando Ang MD Work Phone: Start: 08-02-2023 End: 08-02-2023 Falls risk assessment documented Fernando Ang MD Work Phone: Start: 08-02-2023 End: 08-02-2023 PPPS, subseq visit Fernando Ang MD Work Phone: Start: 08-02-2023 End: 08-02-2023 Pt falls assess docd w/o fall/injury past year Fernando Ang MD Work Phone: Start: 08-02-2023 End: 08-02-2023 Scr dep neg, no plan reqd Fernando Ang MD Work Phone: Start: 07-30-2023 End: 07-30-2023 Lab findings surveillance David Byrne PN Comment on above: CMP 95 Start: 07-30-2023 End: 07-30-2023 Lipid panel results documented & reviewed David Mejias LPN Comment on above: TC 148, HDL 55, TRI 703, LDL 74 Start: 10-04-2022 Diagnostic radiograp hy of abdomen Start: 07-17-2022 End: 07-16-2022 Adv care pln tlkd & alt dcsn maker docd Fernando Ang MD Work Phone: Start: 07-17-2022 End: 07-16-2022 Depression screening Fernando Ang MD Work Phone: Start: 07-17-2022 End: 07-16-2022 Falls risk assessment documented Fernando Ang MD Work Phone: Start: 07-17-2022 End: 07-16-2022 PPPS, subseq visit Fernando Ang MD Work Phone: Start: 07-17-2022 End: 07-16-2022 Pt falls assess docd w/o fall/injury past year Fernando Ang MD Work Phone: Start: 07-17-2022 End: 07-16-2022 Scr dep neg, no plan reqd Fernando Ang MD Work Phone: Start: 07-11-2022 End: 07-11-2022 Lab findings surveillance Aster de oliveira [facility] DIRECTOR Comment on above: 87 Start: 07-11-2022 End: 07-11-2022 Lipid panel results documented & reviewed Aster Garnica [facility] DIRECT[facility] Start: 07-11-2021 End: 07-11-2021 Removal impacted cerumen instrumentation rasheedat Fernando Ang MD Work Phone: Start: 06-21-2021 End: 06-21-2021 Adv care pln tlkd & alt dcsn maker docd Fernando Ang MD Work Phone: Start: 06-21-2021 End: 06-21-2021 Depression screening Fernando Ang MD Work Phone: Start: 06-21-2021 End: 06-21-2021 Falls risk assessment documented Fernando Ang MD Work Phone: Start: 06-21-2021 End: 06-21-2021 PPPS, subseq visit Fernando Ang MD Work Phone: Start: 06-21-2021 End: 06-21-2021 Pt falls assess docd w/o fall/injury past year Fernando Ang MD Work Phone: Start: 06-21-2021 End: 07-11-2021 Removal impacted cerumen instrumentation laurel Ang MD Work Phone: Start: 06-21-2021 End: 06-21-2021 Scr dep neg, no plan reqd Fernando Ang MD Work Phone: Start: 03-29-2021 End: 03-29-2021 Bilateral inguinal hernia repair Aster Garnica [facility] DIRECT[facility] Comment on above: [facility] Start: 08-13-2018 End: 08-13-2018 Radex ankle complete minimum 3 views Fernando Ang MD Work Phone: Start: 07-30-2018 End: 07-30-2018 Most Recent Cardio Report Livia Torres LPN Start: 07-19-2015 End: 07-20-2015 Echo tthrc r-t 2d w/wom-mode compl spec&colr d Fernando Ang MD Work Phone: Start: 07-19-2015 End: 08-02-2015 Xtrnl ecg & 48 hr record scan stor w/r&i Fernando Ang MD Work Phone: Start: 07-18-2015 End: 04-29-2019 Cv strs tst xers&/or rx cont ecg trcg only Fernando Ang MD Work Phone: Start: 07-13-2015 End: 07-13-2015 Screening colonoscopy Aster Garnica [facility] DIRECT[facility] Start: 07-08-2015 End: 07-19-2015 Myocardial spect multiple studies Fernando Ang MD Work Phone: Start: 05-26-2014 End: 07-21-2014 Polysom 6/>yrs sleep w/cpap 4/> addl boo attnd Fernando Ang MD Work Phone: Start: 10-19-2013 End: 05-26-2014 Polysom 6/>yrs sleep w/cpap 4/> addl boo attnd Fernando Ang MD Work Phone: Start: 01-23-2011 End: 01-23-2011 Debridement subcutaneous tissue 20 sq cm/< Otto Manrique MD Work Phone: Start: 01-18-2011 End: 01-19-2011 Debridement subcutaneous tissue 20 sq cm/< Otto Manrique MD Work Phone: Start: 08-22-2010 End: 08-22-2010 Exc b9 lesion mrgn xcp sk tg s/n/h/f/g 0.5 cm/< Fernando Ang MD Work Phone: arthroscopy both knees Aster Garnica [facility] DIRECT[facility] arthroscopy both knees Daryl Mejias [facility] DIRECTOR bladder and prostate removal, 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 2004 Colonoscopy David Mejias LP N Comment on above: Normal. 2004 Plan of Treatment Date Care Activity Detail Author Start: 07-21-2024 Patient encounter procedure Medical; PHYSICAL - physical [facility]. Start: 21-Jul-2024 10:10-04:00 MD Fernando Ang Appointment Request [facility]. Start: 07-15-2024 Comprehensive metabo lic panel CMP w/ GFR* (39399) Start: 15-Jul-2024 13:50-04:00 Request [employer].; [facility]. Start: 07-15-2024 Assay of prostate sp ecific antigen total PSA TOTAL (PROSTATE SPECIFIC ANTIGEN) (14276) Start: 15-Jul-2024 13:50-04:00 Request [employer].; [facility]. Start: 07-15-2024 Lipid panel LIPID PANEL (8 0061) Start: 15-Jul-2024 13:49-04:00 Request [facility].; [facility]. Start: 07-15-2024 Comprehensive metabo lic panel CMP w/ GFR* (25610) Start: 15-Jul-2024 09:45-04:00 Request [employer].; [facility]. Start: 07-15-2024 Assay of prostate sp ecific antigen total PSA TOTAL (PROSTATE SPECIFIC ANTIGEN) (79268) Start: 15-Jul-2024 09:45-04:00 Request [employer].; [facility]. Start: 07-15-2024 Lipid panel LIPID PANEL (8 0061) Start: 15-Jul-2024 09:45-04:00 Request [employer].; [facility]. Start: 07-15-2024 Nursing evaluation o f patient and report Medical; Nurse visit - fasting labs-SFB [employer]. Start: 15-Jul-2024 09:40-04:00 NURSE, FLOAT Appointment Request [employer]. Start: 08-02-2023 Patient encounter procedure Medical; PHYSICAL - Medicare Wellness [employer]. Start: 02-Aug-2023 09:50-04:00 MD Fernando Ang Appointment Request [facility]. Start: 07-30-2023 Lipid panel LIPID PANEL (8 0061) Start: 30-Jul-2023 Request [facility] [employer]; [facility] Start: 07-30-2023 Nursing evaluation o f patient and report Medical; Nurse visit - Medicare Wellness [facility] Start: 30-Jul-2023 08:40-04:00 ROOM, PROCEDURE (DRAW) [facility] Start: 07-30-2023 Comprehensive metabo lic panel [facility] [employer]. Start: 07-30-2023 Assay of prostate sp ecific antigen total [employer]; [employer] Immunizations Immunization Date Immunization Notes Care Provider Fa cility 11-27-2023 zoster vaccine recombinant Fernando Ang MD Work Phone: [employer]; [employer]. 09-04-2023 zoster vaccine recombinant Fernando Ang MD Work Phone: [employer]; [employer]. 08-02-2023 pneumococcal Conjuga te, unspecified formulation Fernando Ang MD Work Phone: [employer]; [employer]. 08-02-2023 Pneumococcal conjuga te, 20 valent (PCV20) Fernando Ang MD Work Phone: [employer]; [employer]. Comment on above: Site: Left ArmVIS Gi vikash: * Pneumococcal Conjugate Vaccine (06/22/22) 12-09-2020 COVID-Moderna (100 MCG/0.5 ML) Fernando Ang MD Work Phone: [employer]; [employer]. 05-03-2020 COVID-Moderna (100 MCG/0.5 ML) Fernando Ang MD Work Phone: [employer] 04-05-2020 COVID-Moderna (100 MCG/0.5 ML) Fernando Ang MD Work Phone: [facility] [employer]; [employer] 11-11-2013 ADMINISTRATION OF INFLUENZA VIRUS VACCINE (G0008) Fernando Ang MD [facility] 11-11-2013 influenza, seasonal, injectable Fernando Ang MD Work [facility]: [facility] [employer]. Comment on above: Site: Deltoid (Left) VIS Given: * Influenza, Inactivated () 11-17-2012 influenza, seasonal, injectable Fernando Ang MD Work Phone: [facility] [employer]; [employer]. Comment on above: Site: Deltoid (Left) VIS Given: * Inactivated Influenza Vaccine (09/21/08) * Inactivated Influenza Vaccine (09/05/10) * Influenza vaccine , inactivated (08/13/2011) * VIS Given (Unspecified) 11-17-2012 pneumococcal polysaccharide vaccine, 23 valent Fernando Ang MD [facility] [employer]. Comment on above: Site: Deltoid (Right )VIS Given: * Pneumococcal Polysaccharide (PPSV23) (11/16/08) 11-17-2012 ADMINISTRATION OF INFLUENZA VIRUS VACCINE (G0008) Fernando Ang MD [facility] [employer]. 11-23-2011 influenza, seasonal, injectable Fernando Ang MD Work Phone: [facility] [employer]. Comment on above: Site: Deltoid (Left) VIS Given: * Inactivated Influenza Vaccine (09/21/08) * Inactivated Influenza Vaccine (09/05/10) * Influenza vaccine , inactivated (08/13/2011) * VIS Given (Unspecified) 11-21-2010 influenza, seasonal, injectable Fernando Ang MD [facility] [employer] Comment on above: Site: Deltoid (Left) VIS Given: * Inactivated Influenza Vaccine (09/21/08) * Inactivated Influenza Vaccine (09/05/10) * Inactivated Influenza Vaccine (09/05/10) * Inactivated Influenza Vaccine (09/05/10) * Inactivated Influenza Vaccine (09/05/10) * Inactivated Influenza Vaccine (09/05/10) * Inactivated Influenza Vaccine (09/05/10) * VIS Given (Unspecified) * VIS Given (Unspecified) 11-21-2010 IMMUNIZATION ADMIN (70504) Fernando Ang MD Work Phone: [employer]; [employer] 09-14-2010 zoster vaccine, live Fernando ramirez MD Work Phone: [employer]; [employer] Comment on above: Site: Deltoid Area ( Right)VIS Given: * Shingles (Herpes Zoster) (11/16/08) 11-21-2009 influenza, seasonal, injectable Fernando Ang MD Work Phone: [employer]; [employer] Comment on above: Site: Deltoid (Left) VIS Given: * Inactivated Influenza Vaccine (09/21/08) Payers Date Payer Category Payer Self-pay [id number] 2015 Private Health Insurance [facility] [id number] Unknown [id number] Social History Date Type Detail Facility Start: 11-22-2015 Tobacco smoking stat RUSTIS Unknown if ever smoked [facility] Start: 1945 Sex Assigned At Male [facility] Alcohol Use: Alcohol Use: ; Occasional alcohol use. [employer] Caffeine Use Caffeine Use [employer] Exercise History: Exercise Histo ry: ; Light. [employer] [employer]. Tobacco Use: Tobacco Use: ; N ever smoker. [employer] [employer] Occasional alcohol use [facility] [employer] [employer] Work Phone: Never smoked tobacco [employer]; [employer] Work Phone: Evaluation note Note Date & Type Note Facility Evaluation note No assessment information [facility] Work Phone: Summary Purpose Family History No Family History Records Found Cancer Status:Active Comments:Father. Mother. Cerebrovascular Accident Status:Active Comment s:Negative Family History Of. Coronary Artery Disease Status:Active Comments :Negative Family History Of. Diabetes Mellitus Type II Status:Active Commen ts:Negative Family History Of. Hypertension Status:Active Comments:Negativ e Family History Of. Cancer Status:Active Comments:Father. Mother. Cerebrovascular Accident Status:Active Comment s:Negative Family History Of. Coronary Artery Disease Status:Active Comments :Negative Family History Of. Diabetes Mellitus Type II Status:Active Commen ts:Negative Family History Of. Hypertension Status:Active Comments:Negativ e Family History Of. Cancer Status:Active Comments:Father. Mother. Cerebrovascular Accident Status:Active Comment s:Negative Family History Of. Coronary Artery Disease Status:Active Comments :Negative Family History Of. Diabetes Mellitus Type II Status:Active Commen ts:Negative Family History Of. Hypertension Status:Active Comments:Negativ e Family History Of. Cancer Status:Active Comments:Father. Mother. Cerebrovascular Accident Status:Active Comment s:Negative Family History Of. Coronary Artery Disease Status:Active Comments :Negative Family History Of. Diabetes Mellitus Type II Status:Active Commen ts:Negative Family History Of. Hypertension Status:Active Comments:Negativ e Family History Of. Cancer Status:Active Comments:Father. Mother. Cerebrovascular Accident Status:Active Comment s:Negative Family History Of. Coronary Artery Disease Status:Active Comments :Negative Family History Of. Diabetes Mellitus Type II Status:Active Commen ts:Negative Family History Of. Hypertension Status:Active Comments:Negativ e Family History Of. Cancer Status:Active Comments:Father. Mother. Cerebrovascular Accident Status:Active Comment s:Negative Family History Of. Coronary Artery Disease Status:Active Comments :Negative Family History Of. Diabetes Mellitus Type II Status:Active Commen ts:Negative Family History Of. Hypertension Status:Active Comments:Negativ e Family History Of. Cancer Status:Active Comments:Father. Mother. Cerebrovascular Accident Status:Active Comment s:Negative Family History Of. Coronary Artery Disease Status:Active Comments :Negative Family History Of. Diabetes Mellitus Type II Status:Active Commen ts:Negative Family History Of. Hypertension Status:Active Comments:Negativ e Family History Of. Cancer Status:Active Comments:Father. Mother. Cerebrovascular Accident Status:Active Comment s:Negative Family History Of. Coronary Artery Disease Status:Active Comments :Negative Family History Of. Diabetes Mellitus Type II Status:Active Commen ts:Negative Family History Of. Hypertension Status:Active Comments:Negativ e Family History Of. Cancer Status:Active Comments:Father. Mother. Cerebrovascular Accident Status:Active Comment s:Negative Family History Of. Coronary Artery Disease Status:Active Comments :Negative Family History Of. Diabetes Mellitus Type II Status:Active Commen ts:Negative Family History Of. Hypertension Status:Active Comments:Negativ e Family History Of. Cancer Status:Active Comments:Father. Mother. Cerebrovascular Accident Status:Active Comment s:Negative Family History Of. Coronary Artery Disease Status:Active Comments :Negative Family History Of. Diabetes Mellitus Type II Status:Active Commen ts:Negative Family History Of. Hypertension Status:Active Comments:Negativ e Family History Of. Cancer Status:Active Comments:Father. Mother. Cerebrovascular Accident Status:Active Comment s:Negative Family History Of. Coronary Artery Disease Status:Active Comments :Negative Family History Of. Diabetes Mellitus Type II Status:Active Commen ts:Negative Family History Of. Hypertension Status:Active Comments:Negativ e Family History Of. Cancer Status:Active Comments:Father. Mother. Cerebrovascular Accident Status:Active Comment s:Negative Family History Of. Coronary Artery Disease Status:Active Comments :Negative Family History Of. Diabetes Mellitus Type II Status:Active Commen ts:Negative Family History Of. Hypertension Status:Active Comments:Negativ e Family History Of. Cancer Status:Active Comments:Father. Mother. Cerebrovascular Accident Status:Active Comment s:Negative Family History Of. Coronary Artery Disease Status:Active Comments :Negative Family History Of. Diabetes Mellitus Type II Status:Active Commen ts:Negative Family History Of. Hypertension Status:Active Comments:Negativ e Family History Of. Cancer Status:Active Comments:Father. Mother. Cerebrovascular Accident Status:Active Comment s:Negative Family History Of. Coronary Artery Disease Status:Active Comments :Negative Family History Of. Diabetes Mellitus Type II Status:Active Commen ts:Negative Family History Of. Hypertension Status:Active Comments:Negativ e Family History Of. Advance Directives No Advanced Directives Records Found Advance Directive Response Recorded Date/ Time Advance Directives Yes November 22, 2015 3:03pm Living Will Yes November 21 3:03pm Power of Contaminated Land Consultant Yes November 22, 2015 3:03pm Living Will - Effective on . Expiration date unspecified. Scanned Document is available upon request. Effective:26-Jul-2005 Living Will - Effective on . Expiration date unspecified. Scanned Document is available upon request. Effective:26-Jul-2005 Living Will - Effective on . Expiration date unspecified. Scanned Document is available upon request. Effective:26-Jul-2005 Living Will - Effective on . Expiration date unspecified. Scanned Document is available upon request. Effective:26-Jul-2005 Living Will - Effective on . Expiration date unspecified. Scanned Document is available upon request. Effective:26-Jul-2005 Living Will - Effective on . Expiration date unspecified. Scanned Document is available upon request. Effective:26-Jul-2005 Living Will - Effective on . Expiration date unspecified. Scanned Document is available upon request. Effective:26-Jul-2005 Living Will - Effective on . Expiration date unspecified. Scanned Document is available upon request. Effective:26-Jul-2005 Living Will - Effective on . Expiration date unspecified. Scanned Document is available upon request. Effective:26-Jul-2005 Living Will - Effective on . Expiration date unspecified. Scanned Document is available upon request. Effective:26-Jul-2005 Living Will - Effective on . Expiration date unspecified. Scanned Document is available upon request. Effective:26-Jul-2005 Living Will - Effective on . Expiration date unspecified. Scanned Document is available upon request. Effective:26-Jul-2005 Living Will - Effective on . Expiration date unspecified. Scanned Document is available upon request. Effective:26-Jul-2005 Living Will - Effective on . Expiration date unspecified. Scanned Document is available upon request. Effective:26-Jul-2005 Chief Complaint and Reason for Visit Chief Complaint HX OF MALIGNANT NEOP LASM/BLADDER, URINARY CALCULI Additional Source Comments (unrecognized sect ion and content) No Status Records FoundNo Status Records FoundNo Status Records FoundNo Status Records Found INFORMATION SOURCE (unrecogn ized section and content) DATE CREATED AUTHOR 08/07/2017 [facility] ([place]) DATE CREATED AUTHOR AUTHOR'S ORGANIZ ATION 08/14/2018 [facility] DATE CREATED AUTHOR AUTHOR'S ORGANIZ ATION 07/17/2024 [facility] DATE CREATED AUTHOR AUTHOR'S ORGANIZ ATION 08/30/2024 [facility] Care Teams (unrecognized sec tion and content) Team Status: Active Member Role Status Dates Dr. Fernando Ang MD Family Provider Active Dr. Fernando Ang MD Primary Care Provider Active Team Status: Inactive Member Role Status Dates Dr. Fernando Ang MD Primary Care Provider Active Dr. Hubert Dc MD Attending Provider, Referr ing Provider Active Goals (unrecognized section and content) Goals may be documented in a n alternate section FOR RECORDS PERTAINING TO PATIENTS WHO ARE OR HAVE BEEN ENROLLED IN A CHEMICAL DEPENDENCY/SUBSTANCEABUSE PROGRAM, SOME INFORMATION MAY BE OMITTED. This clinical summary was aggregated from multiple sources. Caution should be exercised in using it in the provision of clinical care. This summary normalizes information from multiple sources, and as a consequence, information in this document may materially change the coding, format and clinical context of patient data. In addition, data may be omitted in some cases. CLINICAL DECISIONS SHOULD BE BASED ON THE PRIMARY CLINICAL RECORDS. [employer] provides no warranty or guarantee of the accuracy or completeness of information in this document.
== END | disposition home or self-care (01) ==
LOC: RAD 12:40
PROVIDERS: PCP Family Medicine; Referring Provider Urology; Visit Provider Urology
DX: Z87.442 Personal history of urinary calculi (principal)
CPT/HCPCS: 74018